=== PATIENT | female | born 1950 | race Caucasian/White ===

== ENCOUNTER → 2018-04-09 02:28 | Outpatient (CLI) | payer MEDICARE, MEDICAID, SELFPAY ==
[2018-04-09 11:03] LABS: HCT 39.5 % (36.0-46.0); HGB 12.6 g/dL (12.0-15.5); Mean Corp. HGB Concentration 31.9 g/dL (32.0-36.0); Mean Corpuscular Hemoglobin 28.9 pg (27.0-33.0); Mean Corpuscular Volume 90.6 fL (80-95); Mean Platelet Volume 8.8 fL (8.0-11.0); Platelet Count 298 x1000/uL (130-400); RBC 4.36 m/cumm (4.00-5.20); RBC Distribution Width 16.6 % (11.7-14.6); White Blood Cell Count 12.35 k/cumm (4.4-10.8)
[2018-04-09 11:33] LABS: ALT 14 U/L (12-78); AST 11 U/L (15-37); Albumin 3.7 g/dL (3.4-5.0); Alkaline Phosphatase 78 U/L (46-116); Anion Gap 11.3 mmol/L (3-11); BUN 19 mg/dL (7-18); Bilirubin, Total 0.3 mg/dL (0.2-1.0); CO2 29.7 mmol/L (21.0-32.0); CREATININE 1.18 mg/dL (0.55-1.02); Calcium 8.9 mg/dL (8.5-10.1); Chloride 96 mmol/L (98-107); Estimated GFR 45.97 (mL/min/1.73m2); Ferritin 36 ng/mL (8-388); Glucose 146 mg/dL (70-100); Magnesium 1.9 mg/dL (1.8-2.4); Potassium 4.2 mmol/L (3.5-5.1); Sodium 137 mmol/L (136-145); Total Protein 7.5 g/dL (6.4-8.2); Vitamin B12 881 pg/mL (193-986)
[2018-04-09 11:37] LABS: Hemoglobin A1C 7.1 % (4.5-6.2)
[2018-04-09 11:41] LABS: Uric Acid 4.7 mg/dL (2.6-6.0)
[2018-04-10 11:04] LABS: Hepatitis C Ab w Rflx HCV PCR Negative (NEGAT)
== END ==
PROVIDERS: PCP Family Medicine; Visit Provider Family Medicine
DX: D45 Polycythemia vera (principal); E11.9 Type 2 diabetes mellitus without complications; K76.0 Fatty (change of) liver, not elsewhere classified; M10.9 Gout, unspecified; N19 Unspecified kidney failure; E53.8 Deficiency of other specified B group vitamins; R79.0 Abnormal level of blood mineral; Z11.59 Encounter for screening for other viral diseases
CPT/HCPCS: 36415; 80053; 85027; 86803; 82607; 82728; 83036; 83735; 84550

== ENCOUNTER 2018-05-20 22:12 | Emergency (ER) | payer MEDICARE, MEDICAID, SELFPAY ==
--- NOTE | 2018-05-20 00:40 | DI.RAD_ITS ---
SYMPTOM/DIAGNOSIS: EFFUSION, PAIN, S/P TKA LEFT KNEE: Two views. Comparison is made with 06/08/17. There are again seen post surgical changes of a left total knee replacement. No new lucencies are seen in or about the orthopedic hardware to suggest acute loosening or infection. Deformity of the distal femur appears unchanged. There is a single orthopedic screw seen in the medial femoral condyle and a single orthopedic screw is seen in the proximal tibia. No acute fracture or dislocation is seen. The soft tissues are unremarkable. IMPRESSION: No acute abnormality. Stable post operative changes of a left total knee replacement.
[2018-05-20 22:12] VITALS: BP 149/100; PULSE 109; RESP 26; TEMP 36.6; O2SAT 94
--- NOTE | 2018-05-20 22:57 | W.ED.GENAD ---
Discharge Plan Disposition Patient Disposition: STILL A PATIENT Discharge Details Chief Complaint: Orthopedic Primary Care Provider: Joan Linares ED Provider: Tierra Soares Home Meds and New Rx's Prescriptions: No Action nebulizer and compressor [NasoNeb Nasal Nebulizer] 1 EACH device 1 ea Miscellaneous DIRECTED Qty: 1 RF: 0 albuterol sulfate [ProAir HFA] 8.5 GM HFA aerosol inhaler 2 puff Inhalation Q6H PRN Qty: 1 RF: 3 hydrochlorothiazide 50 MG tablet 0.5 tab PO DAILY Qty: 45 RF: 4 pravastatin 10 MG tablet 10 mg PO DAILY Qty: 90 RF: 4 allopurinol [Zyloprim] 300 MG tablet 1 tab PO noon Qty: 90 RF: 4 levothyroxine 200 MCG tablet 200 mcg PO DAILY Qty: 90 RF: 12 calcitriol 0.25 MCG capsule 1 tab PO DAILY Qty: 90 RF: 4 ARSEN MAG ZINC + D3 TABLET 1 EACH Tablet 1 ea PO DAILY Qty: 100 RF: 12 blood sugar diagnostic [Blood Glucose Test] 1 EACH strip 1 ea Miscellaneous 1-2 times daily Qty: 120 RF: 4 lancets 1 EACH misc 1 ea Miscellaneous DAILY Qty: 100 RF: 4 fluticasone-salmeterol [Advair Diskus] 1 EACH blister with device 1 puff Inhalation BID Qty: 3 RF: 4 umeclidinium [Incruse Ellipta] 62.5 MCG blister with device 1 puff Inhalation DAILY Qty: 90 RF: 12 glipizide 5 MG tablet extended release 24hr 5 mg PO DAILY Qty: 90 RF: 11 cyanocobalamin (vitamin B-12) [Vitamin B-12] 1,000 MCG tablet 1,000 mcg PO DAILY Qty: 90 RF: 11 magnesium oxide 500 MG capsule 2 cap PO DAILY Qty: 180 RF: 12 metoprolol tartrate 100 MG tablet 100 mg PO BID Qty: 180 RF: 12 meloxicam [Mobic] 15 MG tablet 1 tab PO DAILY Qty: 90 RF: 4 lisinopril 10 MG tablet 10 mg PO DAILY Qty: 90 RF: 12 aspirin 81 MG tablet,chewable 1 tab PO DAILY Qty: 90 RF: 12 Varicella-Zoster Ge/As01b/Pf [Shingrix Vial Kit] 50 MCG INJ 50 mcg IM ONCE Qty: 1 RF: 1 metformin [Glucophage] 1,000 MG tablet 1,000 mg PO BID Qty: 225 RF: 4 loratadine [Claritin] 10 MG tablet 10 mg PO HS Qty: 90 RF: 3 fluticasone [Flovent HFA] 12 GM HFA aerosol inhaler 2 puff Inhalation BID Qty: 1 RF: 3 acetaminophen [Mapap Extra Strength] 500 MG tablet 500 mg PO PRN PRNRF: 0 gabapentin 300 MG capsule 100 mg PO BID RF: 0 Medical Decision Making Patient presents today with chief complaint of left knee pain in the setting of TKA. On exam, patient is noted to have a well-circumscribed erythema, warmth and discomfort over the lateral aspect of the knee. Patient is noted to have an effusion. We will obtain laboratory evaluation to include CBC, CMP, ESR, CRP and uric acid. We will also obtain imaging. Primarily concerning for infectious source given the erythema, warmth and effusion. Patient is afebrile nontoxic appearing. She does appear slightly short of breath but she reports is baseline associated with COPD. No change recently. Patient requesting Tylenol for discomfort At the end of my shift, laboratory evaluation and imaging is pending. Care was transitioned to Dr. Brito. HPI General Mode of arrival: EMS. Date/Time Provider Initiated Documentation: 05/20/18 22:17. Limitations to Documentation: no limitations. Information obtained by: patient. HPI Narrative: Patient is a 67-year-old female presenting today with chief complaint of insidious onset of left knee pain. Patient reports she has had 3 total knee replacements, last was completed by Dr. Pisano in 2016. Reports she had been feeling well in regard to her knee discomfort until 2 days ago. States that she had insidious onset of left knee discomfort. States the pain is progressive and increasing. Noted erythema and warmth over the medial aspect of the left knee. Is also endorsing swelling to the left knee. She denies any fevers or chills. Reports that she has been feeling well otherwise. Patient has history of obesity, polycythemia, hypertension, COPD, TRINA, ischemic heart disease, type 2 diabetes, hypothyroidism Related Data Home Medications Medication Instructions Recorded Confirmed nebulizer and compressor [NasoNeb #1 ea 12/20/12 05/31/16 Nasal Nebulizer] acetaminophen [Tylenol Extra 500 mg PO PRN PRN 05/26/16 05/20/18 Strength] albuterol sulfate [Proair Hfa] 2 puff INHALATION Q6H PRN #1 09/24/17 05/20/18 canister allopurinol [Zyloprim] 1 tab PO noon #90 tab-cap 11/05/17 05/20/18 blood sugar diagnostic [Glucose #120 strip 11/05/17 Test Strip] calcitriol 1 tab PO DAILY #90 cap 11/05/17 05/20/18 hydrochlorothiazide 0.5 tab PO DAILY #45 tab-cap 11/05/17 05/20/18 levothyroxine 200 mcg PO DAILY #90 tab-cap 11/05/17 05/20/18 pravastatin 10 mg PO DAILY #90 tab-cap 11/05/17 05/20/18 lancets #100 ea 11/21/17 fluticasone-salmeterol [Advair 1 puff INHALATION BID #3 disk 01/15/18 05/20/18 500/50 Diskus] umeclidinium [Incruse Ellipta] 1 puff INHALATION DAILY #90 inhaler 01/15/18 05/20/18 glipizide 5 mg PO DAILY #90 tab-cap 02/22/18 05/20/18 cyanocobalamin (vitamin B-12) 1,000 mcg PO DAILY #90 tab-cap 03/12/18 05/20/18 [Vitamin B-12] magnesium oxide 2 cap PO DAILY #180 tab-cap 03/12/18 05/20/18 aspirin 1 tab PO DAILY #90 tab-cap 04/16/18 05/20/18 lisinopril 10 mg PO DAILY #90 tab-cap 04/16/18 05/20/18 loratadine [Claritin] 10 mg PO HS #90 tab-cap 04/16/18 05/20/18 meloxicam [Mobic] 1 tab PO DAILY #90 tab 04/16/18 05/20/18 metformin [Glucophage] 1,000 mg PO BID #225 tab-cap 04/16/18 05/20/18 metoprolol tartrate 100 mg PO BID #180 tab-cap 04/16/18 05/20/18 fluticasone [Flovent 220mcg] 2 puff INHALATION BID #1 inhaler 04/26/18 gabapentin 100 mg PO BID 05/20/18 05/20/18 Previous Rx's Medication Instructions Recorded albuterol sulfate [Proair Hfa] 2 puff INHALATION Q6H PRN #1 09/24/17 canister allopurinol [Zyloprim] 1 tab PO noon #90 tab-cap 11/05/17 blood sugar diagnostic [Glucose #120 strip 11/05/17 Test Strip] calcitriol 1 tab PO DAILY #90 cap 11/05/17 hydrochlorothiazide 0.5 tab PO DAILY #45 tab-cap 11/05/17 levothyroxine 200 mcg PO DAILY #90 tab-cap 11/05/17 pravastatin 10 mg PO DAILY #90 tab-cap 11/05/17 lancets #100 ea 11/21/17 fluticasone-salmeterol [Advair 1 puff INHALATION BID #3 disk 01/15/18 500/50 Diskus] umeclidinium [Incruse Ellipta] 1 puff INHALATION DAILY #90 inhaler 01/15/18 glipizide 5 mg PO DAILY #90 tab-cap 02/22/18 cyanocobalamin (vitamin B-12) 1,000 mcg PO DAILY #90 tab-cap 03/12/18 [Vitamin B-12] magnesium oxide 2 cap PO DAILY #180 tab-cap 03/12/18 aspirin 1 tab PO DAILY #90 tab-cap 04/16/18 lisinopril 10 mg PO DAILY #90 tab-cap 04/16/18 loratadine [Claritin] 10 mg PO HS #90 tab-cap 04/16/18 meloxicam [Mobic] 1 tab PO DAILY #90 tab 04/16/18 metoprolol tartrate 100 mg PO BID #180 tab-cap 04/16/18 fluticasone [Flovent 220mcg] 2 puff INHALATION BID #1 inhaler 04/26/18 Allergies Allergy/AdvReac Type Severity Reaction Status Date / Time ephedrine AdvReac Mild TACHYCARDIA Unverified 05/20/18 22:16 adhesive AdvReac Unknown Skin Rash Unverified 05/20/18 22:16 pseudoephedrine AdvReac Unknown tachycardia Unverified 05/20/18 22:16 General Stated Complaint: Orthopedic RAFAEL: 3 Review of Systems Constitutional Denies body ache(s), Denies chills, Denies fatigue, Denies fever(s) and Denies headache(s) ENT Denies headache(s) Cardiovascular Denies chest pain, Denies chest pain at rest and Reports dyspnea (Patient endorses chronic dyspnea which she associates with her COPD, no recent exacerbation in this.) Respiratory Denies cough, Denies pain on inspiration, Denies pain with cough and Reports dyspnea (Patient endorses chronic dyspnea which she associates with her COPD, no recent exacerbation in this.) Gastrointestinal Denies change in bowel habits, Denies nausea and Denies vomiting Musculoskeletal Reports as per HPI and Reports abnormal gait (Patient reports that pain is increased with ambulation, this particularly increases the pain in the posterior aspect of the knee and upper calf) Integumentary/Breasts Reports as per HPI Neurologic Reports abnormal gait (Patient reports that pain is increased with ambulation, this particularly increases the pain in the posterior aspect of the knee and upper calf) and Denies headache(s) Endocrine Denies fatigue PFSH Family History Mother Diabetes Essential hypertension Cerebrovascular accident Asthma Father Diabetes Essential hypertension Hyperlipidemia Cerebrovascular accident Brother Essential hypertension Hyperlipidemia Neoplasm Asthma Brother No problems noted. Brother Essential hypertension Heart disease Asthma Grandfather Neoplasm Cerebrovascular accident Grandfather No problems noted. Grandmother Diabetes Cerebrovascular accident Grandmother Essential hypertension Cerebrovascular accident Son No problems noted. Daughter No problems noted. Daughter No problems noted. FAMILY HISTORY Polycythemia Kidney stones DJD (degenerative joint disease) Thyroid disease Social History Smoking/Tobacco Use Status: Current every day Surgical History Arthroplasty of knee BIOPSY (~2003) CARDIAC CATH section EYE SURGERY Endometrial Biopsy Knee revision (~05/2016) Ligation of fallopian tube Replacement of total knee joint (11/25/14) Thyroidectomy Tonsillectomy para thyroidectomy (right) Exam Const General: cooperative, healthy appearing, comfortable, no acute distress and well developed Nutritional Appearance: overweight Orientation: alert and awake Resp Effort & Inspection: normal respiratory effort, able to speak in complete sentences and no respiratory distress Auscultation: clear to auscultation bilaterally Cardio Rate: regular rate Rhythm: regular rhythm Heart Sounds: S1 normal and S2 normal Skin General skin exam: erythema (Patient is a well-circumscribed area of erythema to the medial aspect of the left knee, approximately 8 cm in diameter. Area is warm and tender to palp) Neuro General: alert and awake Cognition: normal cognition Speech: speech normal Gait: gait abnormal (Patient has not ambulated since arrival) Sensory Exam: no sensory deficits noted Extrem General: abnormal to inspection (Exam the patient's left lower extremity is significant for erythema and warmth to the medial aspect of the knee as described above. Moderate effusion is palpable. Full extension. Is able to flex her proximal 110?. Incision appears to have healed well. ), normal capillary refill, no calf tenderness bilaterally and no edema Psych Appearance: grossly normal Mental Status: mental status grossly normal Speech and Movement: speech and movement normal Course Vital Signs Temperature 36.6 C 05/20/18 22:12 Pulse 109 H 05/20/18 22:12 Respiratory Rate 26 H 05/20/18 22:12 Blood Pressure 149/100 H 05/20/18 22:12 Pulse Oximetry 94 L 05/20/18 22:12 Temperature 36.6 C 05/20/18 22:12 Temperature Source Skin 05/20/18 22:12 Pulse 109 H 05/20/18 22:12 Respiratory Rate 26 H 05/20/18 22:12 Respiratory Effort 05/20/18 22:14 Blood Pressure 149/100 H 05/20/18 22:12 Pulse Oximetry 94 L 05/20/18 22:12 Oxygen Delivery Method Room Air 05/20/18 22:12 Oxygen Flow Rate 0 05/20/18 22:12 Pain Level 8 05/20/18 22:12
[2018-05-20] MEDS: Acetaminophen 500 MG TAB 1000 MG PO (23:00)
[2018-05-20 23:15] LABS: Abs Immature Grans 0.06 k/cumm (0.0-0.09); Absolute Eosinophil Count 0.05 k/cumm (0.0-0.7); Absolute Neutrophil Count 13.02 k/cumm (1.2-6.7); Basophils % 0.4; Eosinophils % 0.3; HGB 13.5 g/dL (12.0-15.5); Immature Grans % 0.4; Lymphocytes % 11.5; Mean Corp. HGB Concentration 32.1 g/dL (32.0-36.0); Mean Corpuscular Hemoglobin 28.5 pg (27.0-33.0); Mean Corpuscular Volume 88.8 fL (80-95); Mean Platelet Volume 8.7 fL (8.0-11.0); Monocytes % 8.5; Neutrophils % 78.9; Platelet Count 311 x1000/uL (130-400); RBC 4.73 m/cumm (4.00-5.20); RBC Distribution Width 17.1 % (11.7-14.6)
[2018-05-20 23:26] LABS: Absolute Basophil Count 0.07 k/cumm (0.0-0.2)
[2018-05-20 23:33] LABS: ALT 22 U/L (12-78); AST 17 U/L (15-37); Albumin 3.6 g/dL (3.4-5.0); Alkaline Phosphatase 79 U/L (46-116); Anion Gap 12.6 mmol/L (3-11); BUN 26 mg/dL (7-18); Bilirubin, Total 0.3 mg/dL (0.2-1.0); C-Reactive Protein 2.25 mg/dL (0.0-0.3); CO2 29.4 mmol/L (21.0-32.0); CREATININE 1.46 mg/dL (0.55-1.02); Calcium 8.7 mg/dL (8.5-10.1); Chloride 96 mmol/L (98-107); Estimated GFR 35.96 (mL/min/1.73m2); Glucose 154 mg/dL (70-100); Potassium 4.3 mmol/L (3.5-5.1); Sodium 138 mmol/L (136-145); Total Protein 7.8 g/dL (6.4-8.2); Uric Acid 4.1 mg/dL (2.6-6.0)
[2018-05-21 00:40] VITALS: O2SAT 94
--- NOTE | 2018-05-21 00:44 | DI.VRAD_ITS ---
EXAM: XR Left Knee, 1 or 2 views CLINICAL HISTORY: 67 years old, female; Pain; Knee; Left; Prior surgery; Surgery date: 6+ months; Surgery type: Tka 2015; Patient HX: Pain for 3 days, no fall or trauma TECHNIQUE: Frontal and/or lateral views of the left knee. COMPARISON: CR LEFT KNEE 3 VIEW COMPLETE 06/08/2017 9:34 AM FINDINGS: Bones/joints: Unremarkable. No acute fracture. No dislocation. Soft tissues: Unremarkable. Other findings: Postoperative and chronic changes. No evidence of hardware failure or loosening. IMPRESSION: Postoperative and chronic changes. Dictated and Authenticated by: Petr Soto MD. Ordering:CHUNG ZAMUDIO MD
[2018-05-21 00:46] VITALS: BP 155/84; PULSE 102; O2SAT 94
[2018-05-21 00:50] VITALS: O2SAT 99
[2018-05-21] MEDS: Albuterol/Ipratropium 3 ML UPD VIAL UPD (00:53)
[2018-05-21 01:00] VITALS: O2SAT 98
[2018-05-21 01:01] VITALS: BP 142/96; PULSE 98; O2SAT 97
[2018-05-21 01:02] LABS: ESR 42 MM/HR (0-30)
[2018-05-21 02:02] VITALS: BP 132/74; PULSE 100; RESP 24; TEMP 36.2; O2SAT 96
== END 2018-05-21 02:13 | disposition home or self-care (01) ==
LOC: ER 05-21 02:13
PROVIDERS: Physician Assistant; Emergency Provider Emergency Medicine; PCP Family Medicine
DX: M25.562 Pain in left knee (principal); J44.9 Chronic obstructive pulmonary disease, unspecified; F17.210 Nicotine dependence, cigarettes, uncomplicated; Z96.652 Presence of left artificial knee joint; E11.9 Type 2 diabetes mellitus without complications; Z79.84 Long term (current) use of oral hypoglycemic drugs; I10 Essential (primary) hypertension
CPT/HCPCS: 36415; 80053; 85652; 94640; 99284; 73560; 84550; 85025; 86140; J7620

== ENCOUNTER → 2018-05-21 14:00 | Outpatient (BNVA) | payer MEDICARE, MEDICAID, SELFPAY | PROVIDERS: PCP Family Medicine; Referring Provider Family Medicine; Visit Provider Orthopaedic Surgery | DX: M25.462 Effusion, left knee (principal); M25.562 Pain in left knee; Z96.652 Presence of left artificial knee joint | CPT/HCPCS: 20610; 99212; 99213 ==

== ENCOUNTER 2018-05-21 15:21 | Outpatient (REF) | payer MEDICARE, MEDICAID, SELFPAY ==
[2018-05-21 16:42] LABS: Source SYNOVIAL
[2018-05-21 16:43] LABS: Clarity PURULENT; Nucleated Cells 45250 /MM3 (0-0)
[2018-05-21 17:06] LABS: Mononuclear Cells 4 % (0-0); Polynuclear Cells 96 % (0-0)
== END 2018-05-21 15:41 ==
LOC: LBN 15:21
PROVIDERS: PCP Family Medicine; Visit Provider Orthopaedic Surgery
DX: M25.562 Pain in left knee (principal); Z96.652 Presence of left artificial knee joint
CPT/HCPCS: 87077; 87070; 87186; 87205; 89051; 89060

== ENCOUNTER 2018-05-24 07:36 | Inpatient (IN) | payer MEDICARE, MEDICAID, SELFPAY ==
[2018-05-24] VITALS (12 sets, daily range): BP systolic 109–143; BP diastolic 57–80; PULSE 73–101; RESP 17–22; TEMP 36.2–37; O2SAT 93–99
[2018-05-24] MEDS: Lactated Ringers 1,000 ML 80 ML IV (07:20)
[2018-05-24] MEDS: VANCOMYCIN 1,000 MG in Normal Saline 250 ML 166.6666 MG IVPB (09:18)
--- NOTE | 2018-05-24 09:50 | SYNOVIUM_PTH ---
PATIENT: ROBERT SEVERINO LOC: U#:[id number] AGE/SX: 67/F ROOM: 215 RE05/24/[address]: Gage Pisano MD : [id number] BED: A DIS: 05/30/2018 SPEC #: [id number] RECD: 05/24/18 12:52 STATUS: DOM REAna Maria #: [id number] JAXSON: 05/24/18 09:[address]: Gage Pisano DEPT: Surgical Specimen RECD BY: Saray Savage ENTERED: 05/24/18 12:52 SP TYPE: SYNOVIUM OTHR DR: Joan Linares MD, DC Tissues: 1 - SYNOVIUM/IAL Procedures: GROSS AND MICRO LEVEL 4 Comments: [id number]
[2018-05-24] MEDS: Normal Saline 50 ML 9 ML (11:23)
[2018-05-24] MEDS: Ketorolac 30 MG/ML VIAL (11:23)
[2018-05-24] MEDS: Bupivacaine 0.25% Pres-Free 30 ML VIAL 60 ML (11:23)
[2018-05-24] MEDS: Bupivacaine LIPOSOME/PF 133 MG/10 ML VIAL IJ (11:23)
[2018-05-24] MEDS: POTASSIUM CHLORIDE/D5-0.9%NACL 1,000 ML 125 MEQ IV (13:16)
--- NOTE | 2018-05-24 13:34 | ROE_ITS ---
REPORT OF OPERATIVE PROCEDURE DATE OF PROCEDURE May 24, 2018 PREOPERATIVE DIAGNOSIS Infected left revision total knee arthroplasty. POSTOPERATIVE DIAGNOSIS Infected left revision total knee arthroplasty. PROCEDURE Irrigation, debridement and polyethylene exchange with placement of vancomycin impregnated calcium py rophosphate beads. SURGEON Gage Pisano M.D. ELECTRIC PLATER Efrain Sanchez ANESTHESIA Adductor canal block, followed by tepid spinal anesthesia, followed by general endotracheal anesthesi a by Omid Mason CRNA. PREP ChloraPrep. INDICATIONS This patient has a six-day history of pain and swelling in her let knee. She was seen by me in the of [facility] and underwent an aspiration because of a painful left revision total knee arthroplasty and some erythema over the medial aspect the knee. The patient is two-year status post revision total knee art hroplasty, which was done two years ago to provide stability to the knee as she had ruptured her medi al collateral ligament, and posterior cruciate ligaments after her indexed operation was done several years ago. She had been doing well until five days ago, when she spontaneously developed pain in her left knee. She has been having some problems with sebaceous cysts that have been draining from both armpits and this may have been contributory to her current symptoms. Aspiration in the office reveale d purulent material containing approximately 42,000 white blood cells, the majority of them were poly s, this was sent for culture, as well as alpha defensin at [facility] in [place]. This fluid analysis in [place] was positive for infection and culture showed two species of Staph, one apparen tly being Staph epidermidis, suspected to be Methicillin-resistant and the second species was unknown . I explained to the patient that she had an infection in her revision total knee arthroplasty. I thi nk a two-stage exchange would be impossible to do with all of her comorbidities, including severe LEAD BLENDER D, morbid obesity, diabetes, blindness in her left eye and limited mobility. I felt the best option b ased on recent data from the [facility] would be to perform open irrigation and debridement, polyeth ylene exchange and use of vancomycin impregnated calcium pyrophosphate beads, along with vancomycin p owder intraarticularly and IV vancomycin. She would need to be on IV antibiotics for a minimum of six weeks and then maintained on overall antibiotics for at least six months depending on the sensitivit ies of the organisms grown. I discussed the risks and benefits and she understood and wished to proce ed. DESCRIPTION OF PROCEDURE The patient was seen in the Day Surgery area. Her left leg was marked. She underwent adductor canal b lockade. She underwent attempted spinal anesthesia and although the patient did have spinal fluid at the hub of the spinal needle, she had an incomplete spinal. Therefore, she was placed in a supine pos ition and underwent placement of an LMA, but this did not show an adequate end tidal volume and there fore, she was converted to General endotracheal anesthesia. She was stable throughout the case. She w as given 1 gram vancomycin, with the current plan to have her on 1 gram q. 18 hours to maintain an ap propriate peak in trough level. This was based on the formula provided to me for this patient by the pharmacist. A Cadena catheter was inserted under sterile technique. The left leg was prepped with ChloraPrep. A p neumatic tourniquet applied to the proximal thigh. After prepping and draping, timeout was instituted verifying the planned procedure. The tourniquet was inflated to 380 mmHg. The previous incision was utilized. There was no draining sinus or evidence of any subcutaneous abscess coming from the knee lamine int. The incision was carried down through the midline creating thick medial and lateral capsular fla ps. Care was taken to minimize any undermining of the soft tissues. The extensor mechanism was identi fied and care was taken to stay away from the cadaveric medial collateral ligament graft that had bee n placed two years earlier. After performing the arthrotomy, a moderate amount of purulent material w as encountered, it was grossly yellow and thick, it did not have any odor to it. It was evacuated fro m the knee. Retractors were then placed and rongeurs were used to debride soft tissues and contaminat ed debris from the knee. This was done in a careful manner working both on the medial and lateral gut ters and along the suprapatellar pouch. The components all look to be in good position. They were sta ble. They had no motion whatsoever. I irrigated the knee provisionally with approximately 2000 cc of Betadine and saline solution with a mixture of approximately 100 cc of Betadine per 3000 cc liter irr igation bag. At this point, then I removed the polyethylene insert with mild to moderate difficulty w ithout damaging the collateral or capsular structures. There was no wear on the polyethylene insert. The rotating platform portion and the tibial tray was carefully irrigated out and the posterior condy les were cleansed using mechanical debridement. The patella polyethylene was also debrided mechanical ly with gauze sponges. I then completed the irrigation with a total of 6000 cc of Betadine and saline solution. This was followed by 3000 cc of sterile saline. New gloves and drapes were applied. [place], I planned on replacing the 15-mm polyethylene insert as that was the size that I had removed. Bogdan hinton, I felt that the patient would benefit from a slightly thicker polyethylene insert to provide b lucas midflexion stability to the knee as she had some residual midflexion instability prior to devel oping this infection. With moderate difficulty, the 17.5 mm size 3 rotating platform polyethylene in sert was placed and the knee showed excellent stability, especially in extension, but even in midflex ion. Calcium pyrophosphate beads were then created in a mold with vancomycin powder added to the mix ture. This was allowed to cure and then placed along the medial and lateral gutters and in the suprap atellar pouch. 1 gram of vancomycin was placed directly in the joint in addition. The arthrotomy was then closed with sutures of #1-Vicryl in a layered fashion. Two layers of capsule were closed above t he patella and this was also done below the patella. The extensor mechanism repair was felt to be exc ellent. At this point, the tourniquet was deflated. Hemostasis was under control. Tranexamic acid 3 grams and 100 cc of saline was placed intraarticularly to maintain hemostasis. Subcutaneous tissues w ere closed with #2-0 Vicryl. The skin was closed with 3-0 Ethilon alternating simple sutures, along w ith near-far, far-near retention sutures. The patient has excellent return of skin flow to the skin a nd subcutaneous tissues. Dorsalis pedis pulse was intact. The wound was dressed with Xeroform gauze, 4x4s, A 6-inch conforming gauze bandage, two 6-inch medardo wraps, a Cryo Cuff and a commercial knee immo bilizer. She was taken to the Recovery Room in satisfactory condition tolerating the procedure well. The plan will be continue her on her vancomycin until final sensitivities are available. Estimated blood loss was 175 cc. Postop radiographs showed satisfactory placement of components and overall excellent mechanical alignment. There will be issues related to need for transportation two a nd from home to receive IV vancomycin. I also had the lab run sensitivities for daptomycin sensitivit ies so that a more convenient outpatient dosing schedule could be achieved.
--- NOTE | 2018-05-24 13:45 | NUR.NOTE ---
Nursing Note: 1248: pt arrives from pacu to room 215 via stretcher. pt is alert/oriented x 3. pt has immobilizer and cryo cuff to left knee. knee is elevated on 2 pillows. pt denies pain at this time. pt has patent IV in LH/LW region. pt moved from stretcher to bed via hover mat. pt able to assist in positioning. pt has skin breakdown/redness under bilateral breasts and in groin region. fs in pacu was 133. hr regular, ls clear diminished, pt placed on 1L o2, pt has home bipap/cpap, huffman draining clear yellow urine. pt oriented to call [employer] system, tv remote, continue to monitor.
--- NOTE | 2018-05-24 14:50 | HOME_ITS ---
Home Ventilator Equipment Home care company [facility] Reason: Obstructive Sleep Apnea Make: Respironics Model: Dreamstation Mask type: Nasal mask Mask size: Small Mode: BiPAP Settings: 16/8 PS 4.0 Oxygen bleed in (lpm): 0 Condition: Good Date last checked: 05/24/18 Year of last sleep study: 2017 Compliance Daily Comments:
--- NOTE | 2018-05-24 16:24 | W.MEDCONSULT ---
Date of service: 05/24/18 Time of Service: 16:24 Assessment and Plan (1) Hypertension: Current visit: No Status: Chronic Continue current regimen of HCTZ and AUGUSTO-I, as well as BB. However, review of labs with evidence of worsening creatinine, with a baseline of 1 - 1.2, last checked 1.46 4 days ago. Recommend monitoring repeat blood work in the morning, with appropriate med adjustment as needed pending results. (2) TRINA (obstructive sleep apnea): Current visit: No Status: Chronic Continue home BIPAP therapy. (3) Diabetes mellitus, type II: Current visit: No Status: Chronic Continue Glipizide but hold Metformin. Sliding scale coverage started on sensitive scale due to blood sugars in the 200 range. Maintain on ADA diet. (4) Hypothyroidism: Current visit: No Status: Chronic Continue replacement therapy. (5) COPD (chronic obstructive pulmonary disease): Current visit: Yes Status: Chronic Continue home inhaler therapy with IGC and LAMA. Duonebs added on a prn basis. Currently appears quiescent. (6) DVT prophylaxis: Current visit: Yes Status: Acute Continue SC Lovenox. (7) Hypoparathyroidism: Current visit: Yes Status: Acute Reported history of Thyroidectomy and Parathyroidectomy on the basis of a Multi-nodular Goiter with compressive symptoms, with resultant Hypocalcemia following. Currently on Calcitriol. Corrected Calcium appears normal. Monitor. History of Present Illness Chief Complaint: Infected Knee Narrative: Very pleasant 67 year old woman with a past medical history significant for NIDDM, COPD and tobacco abuse, TRINA, HTN, and dyslipidemia, presents to [facility] for an elective knee irrigation and debridement secondary to an infected left knee prosthesis. Mrs. Leiva has an infected left knee revision with a history of a left sided TKA. She is s/p Irrigation, Debridement, and Polyethylene Exchange with placement of Vancomycin Beads on 05/[address] Pisano. Medicine was consulted for assistance in management of medical comorbidities. Review of Systems Review of Systems All systems reviewed & are unremarkable except as noted in HPI and below PFSH Family History Mother Diabetes Essential hypertension Cerebrovascular accident Asthma Father Diabetes Essential hypertension Hyperlipidemia Cerebrovascular accident Brother Essential hypertension Hyperlipidemia Neoplasm Asthma Brother No problems noted. Brother Essential hypertension Heart disease Asthma Grandfather Neoplasm Cerebrovascular accident Grandfather No problems noted. Grandmother Diabetes Cerebrovascular accident Grandmother Essential hypertension Cerebrovascular accident Son No problems noted. Daughter No problems noted. Daughter No problems noted. FAMILY HISTORY Polycythemia Kidney stones DJD (degenerative joint disease) Thyroid disease Social History Smoking/Tobacco Use Status: Current every day Surgical History Arthroplasty of knee BIOPSY (~2003) CARDIAC CATH section EYE SURGERY Endometrial Biopsy Knee revision (~05/2016) Ligation of fallopian tube Replacement of total knee joint (11/25/14) Thyroidectomy Tonsillectomy para thyroidectomy (right) Exam Narrative Exam Narrative: General: Patient appears comfortable, AAOX3, NAD Neck: Supple CV: Regular, nontachycardic, S1S2, No rubs, murmurs, or gallops. Pulmonary: Clear to auscultation bilaterally, no crackles, wheezing, or rhonchi. Overall decreased breath sounds Abdomen: + Bowel Sounds, soft, nontender, nondistended Vascular: No lower extremity edema Neurologic: CN II-XII grossly intact. No focal deficits. Psych: Normal mood and affect.
[2018-05-24] MEDS: Acetaminophen 325 MG TAB 650 MG PO (16:48)
[2018-05-24] MEDS: Metoprolol 50 MG TAB 100 MG PO (19:26)
[2018-05-24] MEDS: Lactobacillus Acidophilus CAP 1 CAP PO (19:26)
[2018-05-24] MEDS: Gabapentin 100 MG CAP PO (19:26)
[2018-05-24] MEDS: Magnesium Oxide 400 MG TAB PO (19:27)
[2018-05-24] MEDS: Pravastatin 20 MG TAB 10 MG PO (19:27)
[2018-05-24] MEDS: POTASSIUM CHLORIDE/0.9% NACL 1,000 ML 125 MEQ IV (19:59)
[2018-05-24] MEDS: oxyCODONE 5 MG TAB PO (20:24)
[2018-05-24] MEDS: glipiZIDE C.R. 5 MG TABCR PO (21:33)
[2018-05-24] MEDS: Umeclidinium 7 CAP INHALER 1 CAP IH (21:34)
[2018-05-24] MEDS: Loratidine 10 MG TAB PO (21:40)
[2018-05-25] VITALS (8 sets, daily range): BP systolic 109–133; BP diastolic 67–83; PULSE 76–90; RESP 16–19; TEMP 36.1–37.6; O2SAT 96–97
[2018-05-25] MEDS: POTASSIUM CHLORIDE/0.9% NACL 1,000 ML 125 MEQ IV ×4 (03:44→23:04)
[2018-05-25] MEDS: Acetaminophen 325 MG TAB 650 MG PO ×2 (03:46→15:52)
[2018-05-25] MEDS: VANCOMYCIN 1,000 MG in Normal Saline 250 ML 166.667 MG IVPB ×2 (03:56→18:04)
[2018-05-25] MEDS: Levothyroxine 100 MCG TAB PO (05:51)
--- NOTE | 2018-05-25 07:13 | PDOC.CMIN ---
- If Service Date Differs Date of service: 05/25/18 Time of Service: 07:13 Care Management Initial Assess REASON FOR HOSPITALIZATION:: Infection Left Total Knee Revision. PAST MEDICAL HISTORY/PAST SURGICAL HISTORY:: Hypoparthyroidism, COPD, morbid obesity, polycythemia, hypertension, RAD, TRINA, ischemic heart disease, diabetes, hypothyroidism, degenerative arthritis of left knee. Surgical hx: Biopsy; bone marrow, , cardiac cath,ligation of fallopian tube, parathroidectomy, total knee joint replacement, thyroidectomy, tonsillectomy, eye surgery, endometrial biopsy. PREVIOUS FUNCTIONAL STATUS/SOCIAL/FAMILY SUPPORTS:: Helene Faye) resides alone at the [facility] apartments in [place]. She reports that there are two flights of stairs into her home and that since her eye injury in May of 2017 she does not navigate the stairs independently. Marisel reports that she utilizes [facility] for appointments and errands and that they assist her on the stairs when needed. She does not use her walker in her apartment but reports that she does use it to ambulate when out in the community. Marisel reports that her brother, Noe, lives locally and is supportive, though he is very busy with haying at this time. CURRENT FUNCTIONAL STATUS:: Marisel is lying in bed when CM visits this morning. She is engaged in conversation and talkative, and familiar to this CM due to previous admissions. She reports that her pain is minimal and has been taking APAP and oxycodone PRN. She is frustrated by this recent set back in her health however understands that she will be needing longer term IV antibiotics. Per MD, Marisel is due for a PICC consult and may continue with IV antibiotics outpatient with nursing. ADVANCE DIRECTIVES:: On file at [facility]. Has patient been provided with information about the portal?: Yes Did the patient sign up for the portal?: No CODE STATUS:: Full Code INSURANCE COVERAGE / FINANCIAL ISSUES:: Medicaid, Medicare. CURRENT HOME/COMMUNITY SERVICES/EQUIPMENT:: [facility] (Guillermina Mendoza, telehealth case manager), MOW, homemaker services 2 hours/week. PRIMARY CARE PHYSICIAN:: Joan Linares. POTENTIAL DISCHARGE NEEDS:: Follow up appointment with MD and increased home health services. PATIENT/FAMILY EDUCATION NEEDS:: Discharge education, any limitations and follow up plan of care. Ask Me Three discussion. ANTICIPATED BARRIERS TO DISCHARGE:: No anticipated barriers to discharge. TRANSPORTATION:: Marisel will transport via [facility]. PLAN:: Marisel will discharge home when medically ready per MD. Anticipate patient will discharge with home health nursing services, PT/OT and follow up with MD. CM will continue to offer support to patient and care team regarding discharge planning and disposition.
--- NOTE | 2018-05-25 07:20 | INITIAL_ITS ---
- If Service Date Differs Date of service: 05/25/18 Time of Service: 07:13 Care Management Initial Assess REASON FOR HOSPITALIZATION:: Infection Left Total Knee Revision. PAST MEDICAL HISTORY/PAST SURGICAL HISTORY:: Hypoparthyroidism, COPD, morbid obesity, polycythemia, hypertension, RAD, TRINA, ischemic heart disease, diabetes , hypothyroidism, degenerative arthritis of left knee. Surgical hx: Biopsy; bone marrow, , cardiac cath,ligation of fallopian tube, parathroidectomy, total knee joint replacement, thyroidectomy, tonsillectomy, eye surgery, endometrial biopsy. PREVIOUS FUNCTIONAL STATUS/SOCIAL/FAMILY SUPPORTS:: Helene Faye) resides alone at the [facility] apartments in [place]. She reports that there are two flights of stairs into her home and that since her eye injury in May of 2017 she does not navigate the stairs independently. Marisel reports that she utilizes [facility] for appointments and errands and that they assist her on the stairs when needed. She does not use her walker in her apartment but reports that she does use it to ambulate when out in the community. Marisel reports that her brother, Noe, lives locally and is supportive, though he is very busy with haying at this time. CURRENT FUNCTIONAL STATUS:: Marisel is lying in bed when CM visits this morning. She is engaged in conversation and talkative, and familiar to this CM due to previous admissions. She reports that her pain is minimal and has been taking APAP and oxycodone PRN. She is frustrated by this recent set back in her health however understands that she will be needing longer term IV antibiotics. Per MD , Marisel is due for a PICC consult and may continue with IV antibiotics outpatient with nursing. ADVANCE DIRECTIVES:: On file at [facility]. Has patient been provided with information about the portal?: Yes Did the patient sign up for the portal?: No CODE STATUS:: Full Code INSURANCE COVERAGE / FINANCIAL ISSUES:: Medicaid, Medicare. CURRENT HOME/COMMUNITY SERVICES/EQUIPMENT:: [facility] (Guillermina Mendoza, oil field caser), MOW, homemaker services 2 hours/week. PRIMARY CARE PHYSICIAN:: Joan Linares. POTENTIAL DISCHARGE NEEDS:: Follow up appointment with MD and increased home health services. PATIENT/FAMILY EDUCATION NEEDS:: Discharge education, any limitations and follow up plan of care. Ask Me Three discussion. ANTICIPATED BARRIERS TO DISCHARGE:: No anticipated barriers to discharge. TRANSPORTATION:: Marisel will transport via [facility]. PLAN:: Marisel will discharge home when medically ready per MD. Anticipate patient will discharge with home health nursing services, PT/OT and follow up with MD. CM will continue to offer support to patient and care team regarding discharge planning and disposition.
[2018-05-25 07:36] LABS: HCT 36.5 % (36.0-46.0); HGB 11.4 g/dL (12.0-15.5); Mean Corp. HGB Concentration 31.2 g/dL (32.0-36.0); Mean Corpuscular Hemoglobin 28.2 pg (27.0-33.0); Mean Corpuscular Volume 90.3 fL (80-95); Mean Platelet Volume 8.3 fL (8.0-11.0); Platelet Count 272 x1000/uL (130-400); RBC 4.04 m/cumm (4.00-5.20); RBC Distribution Width 16.9 % (11.7-14.6)
[2018-05-25 07:47] LABS: Anion Gap 8.7 mmol/L (3-11); BUN 27 mg/dL (7-18); CO2 28.3 mmol/L (21.0-32.0); CREATININE 1.15 mg/dL (0.55-1.02); Calcium 8.6 mg/dL (8.5-10.1); Chloride 98 mmol/L (98-107); Estimated GFR 47.36 (mL/min/1.73m2); Glucose 150 mg/dL (70-100); Potassium 4.7 mmol/L (3.5-5.1); Sodium 135 mmol/L (136-145)
--- NOTE | 2018-05-25 08:23 | W.PM.PROGNOT ---
Assessment and Plan (1) Infected prosthetic knee joint: Current visit: Yes Status: Acute Infected left total knee revision arthroplasty satisfactory postoperative course staph epidermidis is 1 of the infecting organisms the other staph species is unknown sensitivities to follow will continue on vancomycin every 18 hours with a trough level to be drawn later today as by pharmacy medical management of COPD as per hospitalist as needed. Exam Const Other: Doing very well. Sitting up in chair eating breakfast. No chest pain pressure or shortness of breath. Pain is currently manageable with oxycodone and Tylenol. No nausea or vomiting. Extrem Other: No neurovascular deficits noted in the left foot Objective Objective Clinical Data: Abnormal lab results 05/25/18 05/25/18 Range/Units 07:23 07:23 WBC 12.80 H (4.4-10.8) k/cumm Hgb 11.4 L (12.0-15.5) g/dL MCHC 31.2 L (32.0-36.0) g/dL RDW 16.9 H (11.7-14.6) % Sodium 135 L (136-145) mmol/L BUN 27 H (7-18) mg/dL Creatinine 1.15 H (0.55-1.02) mg/dL Glucose 150 H (70-100) mg/dL Vital Signs Temperature 97.0 F L 05/25/18 04:09 Temperature Source Tympanic 05/25/18 04:09 Pulse 83 05/25/18 04:09 Pulse Rhythm Regular 05/25/18 01:05 Respiratory Rate 16 05/25/18 04:09 Respiratory Effort 05/25/18 01:05 Respiratory Depth Normal 05/25/18 01:05 Respiratory Pattern Normal 05/25/18 01:05 Blood Pressure 118/67 05/25/18 04:09 Pulse Oximetry 96 05/25/18 04:09 Respiratory End-tidal CO2 36 05/24/18 12:33 Oxygen Delivery Method Room Air 05/25/18 04:09 Oxygen Flow Rate 0 05/25/18 04:09 Pain Level 0 05/25/18 07:50 Comment 05/24/18 13:10 Intake & Output 05/24/18 05/24/18 05/25/18 11:59 23:59 11:59 Intake Total 800 / 800 1490.000 / 1421.682 1126.75 / 1968.75 Output Total 226 / 226 800 / 800 500 / 500 Balance 574 / 574 690.000 / 286.913 0619.75 / 1468.75 Weight 223 lb 5.252 oz Intake: IV 800 / 800 1250.000 / 4639.096 3287.75 / 1968.75 Oral 240 / 240 Output: Urine 150 / 150 800 / 800 500 / 500 Estimated Blood Loss 76 / 76 Other: Urine Color Yellow Yellow Straw Urine Appearance Clear Clear Clear Emesis Description None None Laboratory Results WBC 12.80 k/cumm (4.4-10.8) H 05/25/18 07:23 RBC 4.04 m/cumm (4.00-5.20) 05/25/18 07:23 Hgb 11.4 g/dL (12.0-15.5) L 05/25/18 07:23 Hct 36.5 % (36.0-46.0) 05/25/18 07:23 MCV 90.3 fL (80-95) 05/25/18 07:23 MCH 28.2 pg (27.0-33.0) 05/25/18 07:23 MCHC 31.2 g/dL (32.0-36.0) L 05/25/18 07:23 RDW 16.9 % (11.7-14.6) H 05/25/18 07:23 Plt Count 272 x1000/uL (130-400) 05/25/18 07:23 MPV 8.3 fL (8.0-11.0) 05/25/18 07:23 Sodium 135 mmol/L (136-145) L 05/25/18 07:23 Potassium 4.7 mmol/L (3.5-5.1) 05/25/18 07:23 Chloride 98 mmol/L (98-107) 05/25/18 07:23 Carbon Dioxide 28.3 mmol/L (21.0-32.0) 05/25/18 07:23 Anion Gap 8.7 mmol/L (3-11) 05/25/18 07:23 BUN 27 mg/dL (7-18) H 05/25/18 07:23 Creatinine 1.15 mg/dL (0.55-1.02) H 05/25/18 07:23 Estimated GFR/1.73 m2 47.36 (mL/min/1.73m2) 05/25/18 07:23 Glucose 150 mg/dL (70-100) H 05/25/18 07:23 Calcium 8.6 mg/dL (8.5-10.1) 05/25/18 07:23 Progress Note: Quality VTE Deep Vein Thrombosis/Pulmonary Embolism Present on Admission: No
--- NOTE | 2018-05-25 08:27 | PGE_ITS ---
Assessment and Plan (1) Infected prosthetic knee joint: Current visit: Yes Status: Acute Infected left total knee revision arthroplasty satisfactory postoperative course staph epidermidis is 1 of the infecting organisms the other staph species is unknown sensitivities to follow will continue on vancomycin every 18 hours with a trough level to be drawn later today as by pharmacy medical management of COPD as per hospitalist as needed. Exam Const Other: Doing very well. Sitting up in chair eating breakfast. No chest pain pressure or shortness of breath. Pain is currently manageable with oxycodone and Tylenol. No nausea or vomiting. Extrem Other: No neurovascular deficits noted in the left foot Objective Objective Clinical Data: Abnormal lab results 05/25/18 05/25/18 Range/Units 07:23 07:23 WBC 12.80 H (4.4-10.8) k/cumm Hgb 11.4 L (12.0-15.5) g/dL MCHC 31.2 L (32.0-36.0) g/dL RDW 16.9 H (11.7-14.6) % Sodium 135 L (136-145) mmol/L BUN 27 H (7-18) mg/dL Creatinine 1.15 H (0.55-1.02) mg/dL Glucose 150 H (70-100) mg/dL Vital Signs Temperature 97.0 F L 05/25/18 04:09 Temperature Source Tympanic 05/25/18 04:09 Pulse 83 05/25/18 04:09 Pulse Rhythm Regular 05/25/18 01:05 Respiratory Rate 16 05/25/18 04:09 Respiratory Effort 05/25/18 01:05 Respiratory Depth Normal 05/25/18 01:05 Respiratory Pattern Normal 05/25/18 01:05 Blood Pressure 118/67 05/25/18 04:09 Pulse Oximetry 96 05/25/18 04:09 Respiratory End-tidal CO2 36 05/24/18 12:33 Oxygen Delivery Method Room Air 05/25/18 04:09 Oxygen Flow Rate 0 05/25/18 04:09 Pain Level 0 05/25/18 07:50 Comment 05/24/18 13:10 Intake & Output 05/24/18 05/24/18 05/25/18 11:59 23:59 11:59 Intake Total 800 / 800 1490.000 / 2188.730 8298.75 / 1968.75 Output Total 226 / 226 800 / 800 500 / 500 Balance 574 / 574 690.000 / 661.026 4364.75 / 1468.75 Weight 223 lb 5.252 oz Intake: IV 800 / 800 1250.000 / 7722.172 1043.75 / 1968.75 Oral 240 / 240 Output: Urine 150 / 150 800 / 800 500 / 500 Estimated Blood Loss 76 / 76 Other: Urine Color Yellow Yellow Straw Urine Appearance Clear Clear Clear Emesis Description None None Laboratory Results WBC 12.80 k/cumm (4.4-10.8) H 05/25/18 07:23 RBC 4.04 m/cumm (4.00-5.20) 05/25/18 07:23 Hgb 11.4 g/dL (12.0-15.5) L 05/25/18 07:23 Hct 36.5 % (36.0-46.0) 05/25/18 07:23 MCV 90.3 fL (80-95) 05/25/18 07:23 MCH 28.2 pg (27.0-33.0) 05/25/18 07:23 MCHC 31.2 g/dL (32.0-36.0) L 05/25/18 07:23 RDW 16.9 % (11.7-14.6) H 05/25/18 07:23 Plt Count 272 x1000/uL (130-400) 05/25/18 07:23 MPV 8.3 fL (8.0-11.0) 05/25/18 07:23 Sodium 135 mmol/L (136-145) L 05/25/18 07:23 Potassium 4.7 mmol/L (3.5-5.1) 05/25/18 07:23 Chloride 98 mmol/L (98-107) 05/25/18 07:23 Carbon Dioxide 28.3 mmol/L (21.0-32.0) 05/25/18 07:23 Anion Gap 8.7 mmol/L (3-11) 05/25/18 07:23 BUN 27 mg/dL (7-18) H 05/25/18 07:23 Creatinine 1.15 mg/dL (0.55-1.02) H 05/25/18 07:23 Estimated GFR/1.73 m2 47.36 (mL/min/1.73m2) 05/25/18 07:23 Glucose 150 mg/dL (70-100) H 05/25/18 07:23 Calcium 8.6 mg/dL (8.5-10.1) 05/25/18 07:23 Progress Note: Quality VTE Deep Vein Thrombosis/Pulmonary Embolism Present on Admission: No
[2018-05-25] MEDS: Budesonide/Formoterol 160/4.5 6 GM 60 PUFF INH IH ×2 (08:37→19:56)
[2018-05-25] MEDS: Hydrochlorothiazide 25 MG TAB PO (09:12)
[2018-05-25] MEDS: Magnesium Oxide 400 MG TAB PO ×2 (09:12→19:59)
[2018-05-25] MEDS: Enoxaparin 30 MG/0.3 ML SYR SC ×2 (09:12→19:57)
[2018-05-25] MEDS: Multivitamin w/Minerals TAB 1 TAB PO (09:13)
[2018-05-25] MEDS: Meloxicam 15 MG TAB PO (09:13)
[2018-05-25] MEDS: Insulin Aspart 300 UNITS/3 ML PEN SC ×2 (09:13→12:10)
[2018-05-25] MEDS: Gabapentin 100 MG CAP PO ×2 (09:13→19:58)
[2018-05-25] MEDS: Cyanocobalamin 500 MCG TAB 1000 MCG PO (09:13)
[2018-05-25] MEDS: Allopurinol 100 MG TAB PO (09:13)
[2018-05-25] MEDS: Lisinopril 10 MG TAB PO (09:13)
[2018-05-25] MEDS: Calcitriol 0.25 MCG CAP PO (09:13)
[2018-05-25] MEDS: Pantoprazole 40 MG TABCR PO (09:13)
[2018-05-25] MEDS: Metoprolol 50 MG TAB 100 MG PO ×2 (09:13→19:57)
[2018-05-25] MEDS: Lactobacillus Acidophilus CAP 1 CAP PO ×2 (09:13→19:58)
[2018-05-25] MEDS: Albuterol/Ipratropium 3 ML UPD VIAL UPD (11:25)
[2018-05-25] MEDS: Milk of Magnesia 30 ML CUP PO (13:49)
[2018-05-25] MEDS: oxyCODONE 5 MG TAB PO (15:52)
--- NOTE | 2018-05-25 16:51 | W.PM.PROGNOT ---
Assessment and Plan (1) Infected prosthetic knee joint: Current visit: Yes Status: Acute Per orthopedics (2) COPD (chronic obstructive pulmonary disease): Current visit: No Status: Chronic Stable continue home medications (3) DVT prophylaxis: Current visit: No Status: Acute Continue subcutaneous Lovenox (4) Hypertension: Current visit: No Status: Chronic Blood pressures have been stable continue home medications (5) TRINA (obstructive sleep apnea): Current visit: No Status: Chronic Stable continue home BiPAP therapy (6) Diabetes mellitus, type II: Current visit: No Status: Chronic Blood sugars have been maintained in the high 100s with a range from 163-202 today. Continue diabetic diet sliding scale coverage before meals and at bedtime and glipizide metformin continues to be on hold for acute on chronic renal failure , her creatinine has returned to her baseline of 1.2 but should be able to restart soon (7) Hypoparathyroidism: Current visit: No Status: Acute Stable continue home medications including calcitriol and monitor Subjective Patient reports: no new complaints and feels better Interval history since last seen: 67-year-old female patient with a past medical history significant for diabetes mellitus type 2 status post knee replacement who is admitted under orthopedic services for an infection of her prosthetic knee. Hospitalist services is following for chronic disease management,. Her blood sugars have been maintained in the 160-200 range today she receiving sliding scale coverage as needed. Exam Const General: cooperative, healthy appearing, comfortable and no acute distress Nutritional Appearance: overweight Orientation: alert, awake and oriented x3 HENMT Mouth: moist mucous membranes Neck Neck: normal visual inspection Resp Effort & Inspection: normal respiratory effort Auscultation: clear to auscultation bilaterally Cardio Rate: regular rate Rhythm: regular rhythm GI Inspection: normal to inspection Palpation: soft Auscultation: normal bowel sounds Skin Wounds: wounds noted (Surgical dressing clean dry and intact she has cold therapy to her knee and is wearing an immobilizer) Neuro General: alert, awake and oriented x3 Objective Objective Clinical Data: Abnormal lab results 05/25/18 05/25/18 Range/Units 07:23 07:23 WBC 12.80 H (4.4-10.8) k/cumm Hgb 11.4 L (12.0-15.5) g/dL MCHC 31.2 L (32.0-36.0) g/dL RDW 16.9 H (11.7-14.6) % Sodium 135 L (136-145) mmol/L BUN 27 H (7-18) mg/dL Creatinine 1.15 H (0.55-1.02) mg/dL Glucose 150 H (70-100) mg/dL Vital Signs Temperature 37.0 C 05/25/18 15:54 Temperature Source Tympanic 05/25/18 15:54 Pulse 78 05/25/18 15:54 Pulse Rhythm Regular 05/25/18 07:50 Respiratory Rate 18 05/25/18 15:54 Respiratory Effort Non-Labored 05/25/18 07:50 Respiratory Depth Normal 05/25/18 07:50 Respiratory Pattern Normal 05/25/18 07:50 Blood Pressure 122/71 05/25/18 15:54 Pulse Oximetry 97 05/25/18 15:54 Respiratory End-tidal CO2 36 05/24/18 12:33 Oxygen Delivery Method Room Air 05/25/18 15:54 Oxygen Flow Rate 0 05/25/18 15:54 Pain Level 5 05/25/18 15:52 Comment 05/24/18 13:10 Intake & Output 05/24/18 05/25/18 05/25/18 23:59 11:59 23:59 Intake Total 1490.000 / 1914.808 4218.75 / 3309.75 1129 / 1129 Output Total 800 / 800 1250 / 1250 Balance 690.000 / 467.730 9072.75 / 2059.75 1129 / 1129 Intake: IV 1250.000 / 8453.633 4568.75 / 2759.75 209 / 209 Oral 240 / 240 550 / 550 920 / 920 Output: Urine 800 / 800 1250 / 1250 Other: Urine Color Yellow Yellow Urine Appearance Clear Clear Stool Size Large Stool Characteristics Soft Liquid Brown Emesis Description None Laboratory Results WBC 12.80 k/cumm (4.4-10.8) H 05/25/18 07:23 RBC 4.04 m/cumm (4.00-5.20) 05/25/18 07:23 Hgb 11.4 g/dL (12.0-15.5) L 05/25/18 07:23 Hct 36.5 % (36.0-46.0) 05/25/18 07:23 MCV 90.3 fL (80-95) 05/25/18 07:23 MCH 28.2 pg (27.0-33.0) 05/25/18 07:23 MCHC 31.2 g/dL (32.0-36.0) L 05/25/18 07:23 RDW 16.9 % (11.7-14.6) H 05/25/18 07:23 Plt Count 272 x1000/uL (130-400) 05/25/18 07:23 MPV 8.3 fL (8.0-11.0) 05/25/18 07:23 Sodium 135 mmol/L (136-145) L 05/25/18 07:23 Potassium 4.7 mmol/L (3.5-5.1) 05/25/18 07:23 Chloride 98 mmol/L (98-107) 05/25/18 07:23 Carbon Dioxide 28.3 mmol/L (21.0-32.0) 05/25/18 07:23 Anion Gap 8.7 mmol/L (3-11) 05/25/18 07:23 BUN 27 mg/dL (7-18) H 05/25/18 07:23 Creatinine 1.15 mg/dL (0.55-1.02) H 05/25/18 07:23 Estimated GFR/1.73 m2 47.36 (mL/min/1.73m2) 05/25/18 07:23 Glucose 150 mg/dL (70-100) H 05/25/18 07:23 Calcium 8.6 mg/dL (8.5-10.1) 05/25/18 07:23 Progress Note: Quality VTE Deep Vein Thrombosis/Pulmonary Embolism Present on Admission: No
--- NOTE | 2018-05-25 17:01 | PGE_ITS ---
Assessment and Plan (1) Infected prosthetic knee joint: Current visit: Yes Status: Acute Per orthopedics (2) COPD (chronic obstructive pulmonary disease): Current visit: No Status: Chronic Stable continue home medications (3) DVT prophylaxis: Current visit: No Status: Acute Continue subcutaneous Lovenox (4) Hypertension: Current visit: No Status: Chronic Blood pressures have been stable continue home medications (5) TRINA (obstructive sleep apnea): Current visit: No Status: Chronic Stable continue home BiPAP therapy (6) Diabetes mellitus, type II: Current visit: No Status: Chronic Blood sugars have been maintained in the high 100s with a range from 163- 202 today. Continue diabetic diet sliding scale coverage before meals and at bedtime and glipizide metformin continues to be on hold for acute on chronic renal failure , her creatinine has returned to her baseline of 1.2 but should be able to restart soon (7) Hypoparathyroidism: Current visit: No Status: Acute Stable continue home medications including calcitriol and monitor Subjective Patient reports: no new complaints and feels better Interval history since last seen: 67-year-old female patient with a past medical history significant for diabetes mellitus type 2 status post knee replacement who is admitted under orthopedic services for an infection of her prosthetic knee. Hospitalist services is following for chronic disease management,. Her blood sugars have been maintained in the 160-200 range today she receiving sliding scale coverage as needed. Exam Const General: cooperative, healthy appearing, comfortable and no acute distress Nutritional Appearance: overweight Orientation: alert, awake and oriented x3 HENMT Mouth: moist mucous membranes Neck Neck: normal visual inspection Resp Effort & Inspection: normal respiratory effort Auscultation: clear to auscultation bilaterally Cardio Rate: regular rate Rhythm: regular rhythm GI Inspection: normal to inspection Palpation: soft Auscultation: normal bowel sounds Skin Wounds: wounds noted (Surgical dressing clean dry and intact she has cold therapy to her knee and is wearing an immobilizer) Neuro General: alert, awake and oriented x3 Objective Objective Clinical Data: Abnormal lab results 05/25/18 05/25/18 Range/Units 07:23 07:23 WBC 12.80 H (4.4-10.8) k/cumm Hgb 11.4 L (12.0-15.5) g/dL MCHC 31.2 L (32.0-36.0) g/dL RDW 16.9 H (11.7-14.6) % Sodium 135 L (136-145) mmol/L BUN 27 H (7-18) mg/dL Creatinine 1.15 H (0.55-1.02) mg/dL Glucose 150 H (70-100) mg/dL Vital Signs Temperature 37.0 C 05/25/18 15:54 Temperature Source Tympanic 05/25/18 15:54 Pulse 78 05/25/18 15:54 Pulse Rhythm Regular 05/25/18 07:50 Respiratory Rate 18 05/25/18 15:54 Respiratory Effort Non-Labored 05/25/18 07:50 Respiratory Depth Normal 05/25/18 07:50 Respiratory Pattern Normal 05/25/18 07:50 Blood Pressure 122/71 05/25/18 15:54 Pulse Oximetry 97 05/25/18 15:54 Respiratory End-tidal CO2 36 05/24/18 12:33 Oxygen Delivery Method Room Air 05/25/18 15:54 Oxygen Flow Rate 0 05/25/18 15:54 Pain Level 5 05/25/18 15:52 Comment 05/24/18 13:10 Intake & Output 05/24/18 05/25/18 05/25/18 23:59 11:59 23:59 Intake Total 1490.000 / 6555.688 0597.75 / 3309.75 1129 / 1129 Output Total 800 / 800 1250 / 1250 Balance 690.000 / 832.369 9797.75 / 2059.75 1129 / 1129 Intake: IV 1250.000 / 9603.657 8394.75 / 2759.75 209 / 209 Oral 240 / 240 550 / 550 920 / 920 Output: Urine 800 / 800 1250 / 1250 Other: Urine Color Yellow Yellow Urine Appearance Clear Clear Stool Size Large Stool Characteristics Soft Liquid Brown Emesis Description None Laboratory Results WBC 12.80 k/cumm (4.4-10.8) H 05/25/18 07:23 RBC 4.04 m/cumm (4.00-5.20) 05/25/18 07:23 Hgb 11.4 g/dL (12.0-15.5) L 05/25/18 07:23 Hct 36.5 % (36.0-46.0) 05/25/18 07:23 MCV 90.3 fL (80-95) 05/25/18 07:23 MCH 28.2 pg (27.0-33.0) 05/25/18 07:23 MCHC 31.2 g/dL (32.0-36.0) L 05/25/18 07:23 RDW 16.9 % (11.7-14.6) H 05/25/18 07:23 Plt Count 272 x1000/uL (130-400) 05/25/18 07:23 MPV 8.3 fL (8.0-11.0) 05/25/18 07:23 Sodium 135 mmol/L (136-145) L 05/25/18 07:23 Potassium 4.7 mmol/L (3.5-5.1) 05/25/18 07:23 Chloride 98 mmol/L (98-107) 05/25/18 07:23 Carbon Dioxide 28.3 mmol/L (21.0-32.0) 05/25/18 07:23 Anion Gap 8.7 mmol/L (3-11) 05/25/18 07:23 BUN 27 mg/dL (7-18) H 05/25/18 07:23 Creatinine 1.15 mg/dL (0.55-1.02) H 05/25/18 07:23 Estimated GFR/1.73 m2 47.36 (mL/min/1.73m2) 05/25/18 07:23 Glucose 150 mg/dL (70-100) H 05/25/18 07:23 Calcium 8.6 mg/dL (8.5-10.1) 05/25/18 07:23 Progress Note: Quality VTE Deep Vein Thrombosis/Pulmonary Embolism Present on Admission: No
[2018-05-25] MEDS: glipiZIDE C.R. 5 MG TABCR PO (17:05)
[2018-05-25] MEDS: Umeclidinium 7 CAP INHALER 1 CAP IH (17:43)
[2018-05-25] MEDS: Pravastatin 20 MG TAB 10 MG PO (19:58)
[2018-05-25] MEDS: Loratidine 10 MG TAB PO (21:30)
[2018-05-26] MEDS: Levothyroxine 100 MCG TAB PO (05:18)
[2018-05-26] MEDS: Acetaminophen 325 MG TAB 650 MG PO ×3 (06:36→17:21)
[2018-05-26] MEDS: POTASSIUM CHLORIDE/0.9% NACL 1,000 ML 125 MEQ IV (06:37)
[2018-05-26 07:25] VITALS: BP 157/88; PULSE 89; RESP 18; TEMP 36.7; O2SAT 97
[2018-05-26 07:41] LABS: HCT 38.2 % (36.0-46.0); HGB 12.1 g/dL (12.0-15.5); Mean Corp. HGB Concentration 31.7 g/dL (32.0-36.0); Mean Corpuscular Hemoglobin 28.5 pg (27.0-33.0); Mean Corpuscular Volume 89.9 fL (80-95); Mean Platelet Volume 8.7 fL (8.0-11.0); Platelet Count 260 x1000/uL (130-400); RBC 4.25 m/cumm (4.00-5.20); RBC Distribution Width 17.1 % (11.7-14.6); White Blood Cell Count 12.11 k/cumm (4.4-10.8)
[2018-05-26 07:56] LABS: Vancomycin, Trough 18.7 ug/mL (10.0-20.0)
[2018-05-26 08:05] LABS: Anion Gap 10.1 mmol/L (3-11); BUN 25 mg/dL (7-18); CO2 25.9 mmol/L (21.0-32.0); CREATININE 1.04 mg/dL (0.55-1.02); Calcium 9.3 mg/dL (8.5-10.1); Chloride 101 mmol/L (98-107); Estimated GFR 53.18 (mL/min/1.73m2); Glucose 165 mg/dL (70-100); Potassium 4.4 mmol/L (3.5-5.1); Sodium 137 mmol/L (136-145)
[2018-05-26] MEDS: Cyanocobalamin 500 MCG TAB 1000 MCG PO (08:28)
[2018-05-26] MEDS: Multivitamin w/Minerals TAB 1 TAB PO (08:28)
[2018-05-26] MEDS: Lactobacillus Acidophilus CAP 1 CAP PO ×2 (08:28→20:01)
[2018-05-26] MEDS: Metoprolol 50 MG TAB 100 MG PO ×2 (08:28→19:59)
[2018-05-26] MEDS: Hydrochlorothiazide 25 MG TAB PO (08:28)
[2018-05-26] MEDS: Magnesium Oxide 400 MG TAB PO ×2 (08:28→20:01)
[2018-05-26] MEDS: VANCOMYCIN 1,000 MG in Normal Saline 250 ML 167 MG IVPB (08:29)
[2018-05-26] MEDS: Meloxicam 15 MG TAB PO (08:29)
[2018-05-26] MEDS: Calcitriol 0.25 MCG CAP PO (08:29)
[2018-05-26] MEDS: Pantoprazole 40 MG TABCR PO (08:29)
[2018-05-26] MEDS: Lisinopril 10 MG TAB PO (08:29)
[2018-05-26] MEDS: Gabapentin 100 MG CAP PO ×2 (08:29→19:59)
[2018-05-26] MEDS: Enoxaparin 30 MG/0.3 ML SYR SC ×2 (08:30→19:57)
[2018-05-26] MEDS: Insulin Aspart 300 UNITS/3 ML PEN SC ×3 (08:30→17:21)
--- NOTE | 2018-05-26 08:32 | W.PM.PROGNOT ---
Assessment and Plan (1) Infected prosthetic knee joint: Current visit: Yes Status: Acute Joint cultures growing 2 types of staph epi. Both are sensitve to both vancomycin and daptomycin. I will add rifampin 300 mg bid. Allopurinol changed to 300 mg daily. Metformin re-ordered. Bandage changed. Wound benign. Exam Const Other: Undergoing nicotine withdrawal with some anxiety. Spent night in the recliner. Did well getting up with p.t. Extrem Other: Wound benign. Bandage changed by Shana New sterile bandage applied. Objective Objective Clinical Data: Abnormal lab results 05/26/18 05/26/18 Range/Units 07:25 07:25 WBC 12.11 H (4.4-10.8) k/cumm MCHC 31.7 L (32.0-36.0) g/dL RDW 17.1 H (11.7-14.6) % BUN 25 H (7-18) mg/dL Creatinine 1.04 H (0.55-1.02) mg/dL Glucose 165 H (70-100) mg/dL Vital Signs Temperature 97.2 F L 05/25/18 23:59 Temperature Source Tympanic 05/25/18 23:59 Pulse 89 05/25/18 23:59 Pulse Rhythm Regular 05/25/18 21:07 Respiratory Rate 17 05/25/18 23:59 Respiratory Effort Non-Labored 05/25/18 21:07 Respiratory Depth Normal 05/25/18 21:07 Respiratory Pattern Normal 05/25/18 21:07 Blood Pressure 119/76 05/25/18 23:59 Pulse Oximetry 97 05/25/18 23:59 Respiratory End-tidal CO2 36 05/24/18 12:33 Oxygen Delivery Method Room Air 05/25/18 23:59 Oxygen Flow Rate 0 05/25/18 23:59 Pain Level 7 05/26/18 06:36 Comment 05/24/18 13:10 Intake & Output 05/25/18 05/25/18 05/26/18 11:59 23:59 11:59 Intake Total 3549.75 / 3549.75 2462.75 / 2462.75 943.75 / 943.75 Output Total 1250 / 1250 1650 / 1650 1500 / 1500 Balance 2299.75 / 2299.75 812.75 / 812.75 -556.25 / -556.25 Intake: IV 2759.75 / 2759.75 752.75 / 752.75 943.75 / 943.75 Oral 790 / 790 1710 / 1710 Output: Urine 1250 / 1250 1650 / 1650 1500 / 1500 Other: Urine Color Yellow Yellow Yellow Urine Appearance Clear Clear Clear Urine Odor Normal None Comment Huffman huffman Stool Size Moderate Stool Characteristics Soft Laboratory Results WBC 12.11 k/cumm (4.4-10.8) H 05/26/18 07:25 RBC 4.25 m/cumm (4.00-5.20) 05/26/18 07:25 Hgb 12.1 g/dL (12.0-15.5) 05/26/18 07:25 Hct 38.2 % (36.0-46.0) 05/26/18 07:25 MCV 89.9 fL (80-95) 05/26/18 07:25 MCH 28.5 pg (27.0-33.0) 05/26/18 07:25 MCHC 31.7 g/dL (32.0-36.0) L 05/26/18 07:25 RDW 17.1 % (11.7-14.6) H 05/26/18 07:25 Plt Count 260 x1000/uL (130-400) 05/26/18 07:25 MPV 8.7 fL (8.0-11.0) 05/26/18 07:25 Sodium 137 mmol/L (136-145) 05/26/18 07:25 Potassium 4.4 mmol/L (3.5-5.1) 05/26/18 07:25 Chloride 101 mmol/L (98-107) 05/26/18 07:25 Carbon Dioxide 25.9 mmol/L (21.0-32.0) 05/26/18 07:25 Anion Gap 10.1 mmol/L (3-11) 05/26/18 07:25 BUN 25 mg/dL (7-18) H 05/26/18 07:25 Creatinine 1.04 mg/dL (0.55-1.02) H 05/26/18 07:25 Estimated GFR/1.73 m2 53.18 (mL/min/1.73m2) 05/26/18 07:25 Glucose 165 mg/dL (70-100) H 05/26/18 07:25 Calcium 9.3 mg/dL (8.5-10.1) 05/26/18 07:25 Vancomycin Trough 18.7 ug/mL (10.0-20.0) 05/26/18 07:25 Progress Note: Quality VTE Deep Vein Thrombosis/Pulmonary Embolism Present on Admission: No
[2018-05-26] MEDS: Budesonide/Formoterol 160/4.5 6 GM 60 PUFF INH IH ×2 (08:36→20:05)
[2018-05-26] MEDS: Allopurinol 300 MG TAB PO (09:52)
[2018-05-26] MEDS: Normal Saline Flush 10 ML SYR IV ×2 (10:28→19:58)
[2018-05-26] MEDS: RIFAMPIN 300 MG CAP PO ×2 (10:28→22:34)
--- NOTE | 2018-05-26 11:16 | PT.INTREAT ---
Date of service: 05/26/18 Time of Service: 11:16 PT Notes 05/26/2018 Subjective: Patient noting minimal discomfort through the left knee. Objective: Patient agreeable to PT treatment. Treatment was performed all in her room today due to disruptions in the hallway. Transfers Sit?stand: S Stand?sit: S Gait: Device: FW W Weightbearing: WBAT Assist: S Distance: 50 feet Therex: Patient performs standing and seated lower extremity strengthening exercises within her tolerance. See flow sheet for specifics Assessment: Patient progressing well with physical therapy today with good mobility and transfers. We will progress with ambulation in the hallway tomorrow as she is able to tolerate. Plan: Continue current plan of care progressing towards goals. Treatment time: 25 minutes TA x1 TP x1 Disclaimer: This note was created using [employer] voice recognition software. It was reviewed for major content. However, there may be multiple small discrepancies and errors due to the voice recognition aspects of the software.
--- NOTE | 2018-05-26 11:44 | PHARADMIT ---
Addendum entered by Anne Marie Camp 05/29/18 17:07: Pharmacy Note Subjective still working with PT Objective HR-98 other Vs okay no labs Assessment daptomycin and rifampin continue no med changes Plan continue to watch VS, labs and for med changes Original Note: Addendum entered by Trey Gilbert III 05/27/18 11:11: Pharmacy Note Subjective Feeling better, ambulating with PT Objective VS-ok pain-2-3/10 FSBS-157 No Labs, Had BM (small) Assessment Vancomcyin dc'd, changed to Daily Daptomycin (600MG) thru Sunday. Lovenox for DVT Proph Plan Watch for Creatinine Kinase levels. Discharge in three days. Original Note: Admission Pharmacy Clinical Review infection left total knee revision Code Status Full Code Current Weight 101.3 kg Renally Cleared and Narrow Therapeutic Index Meds crcl ~41ml/min QTc Value / Action Taken BP Control, Fever 157/88 afebrile Electrolytes reviewed ok DVT Prophylaxis enoxaparin Opiate Usage / Scheduled Bowel Regimen Ordered PO PRN/PRN Plt/SCr for Heparin / Enoxaparin 260/1.04 INR for Warfarin na H/H stable, WBC/Bands 12.1/38.2 wbc 12.11 Antibiotic appropriateness vancomicin IV pharmacy dosing, rifampin Cultures and Sensitivities per staph epi which may be resistant to methicillin Surgical ABX d/c within 24 hr na DM control / Insulin Dosing FS 162, insulin aspart SS, restarted metformin Heart Failure (Check EF%) (AUGUSTO's, B-Block, Diuretics) na IV to PO Switch Iv abx Home Meds Reviewed Home Meds Not Ordered fluticasone-salmeterol [Advair Diskus] sub symbicort aspirin 1 tab PO DAILY #90 tab-cap 04/16/18 [Rx Confirmed 05/24/18] fluticasone [Flovent HFA] 2 puff INHALATION BID sub mometasone Comments plans to switch to daptomycin for once daily outpt dosing
[2018-05-26 11:47] VITALS: BP 129/79; PULSE 89; RESP 17; TEMP 37.4; O2SAT 97
--- NOTE | 2018-05-26 12:51 | PDOC.CMPRO ---
- If Service Date Differs Date of service: 05/26/18 Time of Service: 12:51 Care Management Progress Note S/O: Marisel is sitting in her chair when CM visits this morning. She is engaged in conversation and talkative. She reports that she has recently seen the MD and he is pleased with her progress. Marisel reports that she no longer needs to use her immobilizer, per MD, and she has a cryo cuff to use as needed. Marisel got a PICC line placed this morning and will be returning home with it for continued IV antibiotic treatment. Per MD, CM will contact on Sunday 05/27 regarding IV abx at home vs. infusion lab daily. Marisel reports that she had a bad night and lost her temper, c/o her evening/night nurse, medications and such. She reports that she apologized to the [employer] this morning. She states that she quit smoking 'cold turkey' on and is slightly agitated. CM will continue to follow. A: 67 year old female admitted with infection of left total knee revision. P: Marisel will discharge home when medically ready per MD. Anticipate patient will discharge with increased services ( nursing, PT/OT?) and PICC line for continued IV antibiotics. Marisel will transport via [facility] [[email or web address] at discharge. She will not be needing a walker, as she has one at home. CM will continue to provide support to patient and care team regarding discharge planning and disposition.
--- NOTE | 2018-05-26 13:01 | CMPROGNOTE_ITS ---
- If Service Date Differs Date of service: 05/26/18 Time of Service: 12:51 Care Management Progress Note S/O: Marisel is sitting in her chair when CM visits this morning. She is engaged in conversation and talkative. She reports that she has recently seen the MD and he is pleased with her progress. Marisel reports that she no longer needs to use her immobilizer, per MD, and she has a cryo cuff to use as needed. Marisel got a PICC line placed this morning and will be returning home with it for continued IV antibiotic treatment. Per MD, CM will contact on Sunday 05/27 regarding IV abx at home vs. infusion lab daily. Marisel reports that she had a bad night and lost her temper, c/o her evening/night nurse, medications and such. She reports that she apologized to the [employer] this morning. She states that she quit smoking 'cold turkey' on and is slightly agitated. CM will continue to follow. A: 67 year old female admitted with infection of left total knee revision. P: Marisel will discharge home when medically ready per MD. Anticipate patient will discharge with increased services ( nursing, PT/OT?) and PICC line for continued IV antibiotics. Marisel will transport via [facility] at discharge. She will not be needing a walker, as she has one at home. CM will continue to provide support to patient and care team regarding discharge planning and disposition.
[2018-05-26 16:05] VITALS: BP 127/93; PULSE 83; RESP 18; TEMP 37.2; O2SAT 98
[2018-05-26] MEDS: metFORMIN 500 MG TAB 1000 MG PO (17:20)
[2018-05-26] MEDS: glipiZIDE C.R. 5 MG TABCR PO (17:20)
[2018-05-26] MEDS: Umeclidinium 7 CAP INHALER 1 CAP IH (18:07)
[2018-05-26] MEDS: Pravastatin 20 MG TAB 10 MG PO (19:59)
[2018-05-26] MEDS: Loratidine 10 MG TAB PO (19:59)
[2018-05-26 20:00] VITALS: BP 167/102; PULSE 100; RESP 20; TEMP 36.7; O2SAT 96
[2018-05-26] MEDS: VANCOMYCIN 1,000 MG in Normal Saline 250 ML 166 MG IVPB (22:34)
[2018-05-27] MEDS: Acetaminophen 325 MG TAB 650 MG PO ×4 (04:46→22:51)
[2018-05-27] MEDS: Levothyroxine 100 MCG TAB PO (04:46)
[2018-05-27 07:45] VITALS: BP 130/84; PULSE 87; RESP 20; TEMP 36.8; O2SAT 96
[2018-05-27] MEDS: Budesonide/Formoterol 160/4.5 6 GM 60 PUFF INH IH ×2 (08:36→20:24)
[2018-05-27] MEDS: Enoxaparin 30 MG/0.3 ML SYR SC ×2 (08:41→20:28)
[2018-05-27] MEDS: Multivitamin w/Minerals TAB 1 TAB PO (08:42)
[2018-05-27] MEDS: Magnesium Oxide 400 MG TAB PO ×2 (08:42→20:25)
[2018-05-27] MEDS: Lactobacillus Acidophilus CAP 1 CAP PO ×2 (08:42→20:25)
[2018-05-27] MEDS: Gabapentin 100 MG CAP PO ×2 (08:42→20:25)
[2018-05-27] MEDS: Meloxicam 15 MG TAB PO (08:42)
[2018-05-27] MEDS: Allopurinol 300 MG TAB PO (08:42)
[2018-05-27] MEDS: Cyanocobalamin 500 MCG TAB 1000 MCG PO (08:42)
[2018-05-27] MEDS: Hydrochlorothiazide 25 MG TAB PO (08:43)
[2018-05-27] MEDS: metFORMIN 500 MG TAB 1000 MG PO ×2 (08:43→16:56)
[2018-05-27] MEDS: Lisinopril 10 MG TAB PO (08:43)
[2018-05-27] MEDS: Pantoprazole 40 MG TABCR PO (08:43)
[2018-05-27] MEDS: Metoprolol 50 MG TAB 100 MG PO ×2 (08:43→20:25)
[2018-05-27] MEDS: Calcitriol 0.25 MCG CAP PO (08:43)
[2018-05-27] MEDS: Insulin Aspart 300 UNITS/3 ML PEN SC ×3 (08:44→16:57)
--- NOTE | 2018-05-27 09:29 | W.PM.PROGNOT ---
Assessment and Plan (1) Infected prosthetic knee joint: Start date: 05/24/18 Start time: 09:49 Current visit: Yes Status: Acute D/C vancomycin. Start Daptomycin 600 mg q 24 hr. Continue physical therapy. Continue lovenox dvt prophylaxis. Up to shower. Probable discharge 72 hrs. Exam Const Other: Feeling better. Ambulated 50 feet yesterday with physical therapy. Had PICC line placed without difficulty.No current drainage. Extrem Other: Afebrile and vital signs are stable. Mild serous drainage from incision last night which is expected. Urine culture is pending. Objective Objective Clinical Data: Vital Signs Temperature 98.2 F 05/27/18 07:45 Temperature Source Tympanic 05/27/18 07:45 Pulse 87 05/27/18 07:45 Pulse Rhythm Regular 05/26/18 19:50 Respiratory Rate 20 05/27/18 07:45 Respiratory Effort 05/26/18 19:50 Respiratory Depth Normal 05/26/18 19:50 Respiratory Pattern Normal 05/26/18 08:28 Blood Pressure 130/84 05/27/18 07:45 Pulse Oximetry 96 05/27/18 07:45 Respiratory End-tidal CO2 36 05/24/18 12:33 Oxygen Delivery Method Room Air 05/27/18 07:45 Oxygen Flow Rate 0 05/27/18 07:45 Pain Level 3 05/27/18 04:46 Comment 05/24/18 13:10 Intake & Output 05/26/18 05/26/18 05/27/18 11:59 23:59 11:59 Intake Total 2485.000 / 2485.000 740 / 740 400 / 400 Output Total 3000 / 3000 915 / 915 650 / 650 Balance -515.000 / -515.000 -175 / -175 -250 / -250 Intake: IV 1695.000 / 1695.000 250 / 250 Oral 790 / 790 740 / 740 150 / 150 Output: Urine 3000 / 3000 915 / 915 650 / 650 Other: Urine Color Yellow Light Shanon Straw Urine Appearance Clear Clear Cloudy Urine Odor None None Strong Comment huffman pt voided independently in toilet. hat in toilet. Stool Size Small Stool Characteristics Soft Voiding Methods Diaper Toilet Incontinent Laboratory Results WBC 12.11 k/cumm (4.4-10.8) H 05/26/18 07:25 RBC 4.25 m/cumm (4.00-5.20) 05/26/18 07:25 Hgb 12.1 g/dL (12.0-15.5) 05/26/18 07:25 Hct 38.2 % (36.0-46.0) 05/26/18 07:25 MCV 89.9 fL (80-95) 05/26/18 07:25 MCH 28.5 pg (27.0-33.0) 05/26/18 07:25 MCHC 31.7 g/dL (32.0-36.0) L 05/26/18 07:25 RDW 17.1 % (11.7-14.6) H 05/26/18 07:25 Plt Count 260 x1000/uL (130-400) 05/26/18 07:25 MPV 8.7 fL (8.0-11.0) 05/26/18 07:25 Sodium 137 mmol/L (136-145) 05/26/18 07:25 Potassium 4.4 mmol/L (3.5-5.1) 05/26/18 07:25 Chloride 101 mmol/L (98-107) 05/26/18 07:25 Carbon Dioxide 25.9 mmol/L (21.0-32.0) 05/26/18 07:25 Anion Gap 10.1 mmol/L (3-11) 05/26/18 07:25 BUN 25 mg/dL (7-18) H 05/26/18 07:25 Creatinine 1.04 mg/dL (0.55-1.02) H 05/26/18 07:25 Estimated GFR/1.73 m2 53.18 (mL/min/1.73m2) 05/26/18 07:25 Glucose 165 mg/dL (70-100) H 05/26/18 07:25 Calcium 9.3 mg/dL (8.5-10.1) 05/26/18 07:25 Vancomycin Trough 18.7 ug/mL (10.0-20.0) 05/26/18 07:25 Progress Note: Quality VTE Deep Vein Thrombosis/Pulmonary Embolism Present on Admission: No
--- NOTE | 2018-05-27 09:34 | W.PM.PROGNOT ---
Objective Objective Clinical Data: Vital Signs Temperature 98.2 F 05/27/18 07:45 Temperature Source Tympanic 05/27/18 07:45 Pulse 87 05/27/18 07:45 Pulse Rhythm Regular 05/27/18 08:40 Respiratory Rate 20 05/27/18 07:45 Respiratory Effort Non-Labored 05/27/18 08:40 Respiratory Depth Normal 05/27/18 08:40 Respiratory Pattern Normal 05/27/18 08:40 Blood Pressure 130/84 05/27/18 07:45 Pulse Oximetry 96 05/27/18 07:45 Respiratory End-tidal CO2 36 05/24/18 12:33 Oxygen Delivery Method Room Air 05/27/18 07:45 Oxygen Flow Rate 0 05/27/18 07:45 Pain Level 3 05/27/18 04:46 Comment 05/24/18 13:10 Intake & Output 05/26/18 05/26/18 05/27/18 11:59 23:59 11:59 Intake Total 2485.000 / 2485.000 740 / 740 400 / 400 Output Total 3000 / 3000 915 / 915 650 / 650 Balance -515.000 / -515.000 -175 / -175 -250 / -250 Intake: IV 1695.000 / 1695.000 250 / 250 Oral 790 / 790 740 / 740 150 / 150 Output: Urine 3000 / 3000 915 / 915 650 / 650 Other: Urine Color Yellow Light Shanon Straw Urine Appearance Clear Clear Cloudy Urine Odor None None Strong Comment huffman pt voided independently in toilet. hat in toilet. Stool Size Small Stool Characteristics Soft Voiding Methods Diaper Toilet Incontinent Laboratory Results WBC 12.11 k/cumm (4.4-10.8) H 05/26/18 07:25 RBC 4.25 m/cumm (4.00-5.20) 05/26/18 07:25 Hgb 12.1 g/dL (12.0-15.5) 05/26/18 07:25 Hct 38.2 % (36.0-46.0) 05/26/18 07:25 MCV 89.9 fL (80-95) 05/26/18 07:25 MCH 28.5 pg (27.0-33.0) 05/26/18 07:25 MCHC 31.7 g/dL (32.0-36.0) L 05/26/18 07:25 RDW 17.1 % (11.7-14.6) H 05/26/18 07:25 Plt Count 260 x1000/uL (130-400) 05/26/18 07:25 MPV 8.7 fL (8.0-11.0) 05/26/18 07:25 Sodium 137 mmol/L (136-145) 05/26/18 07:25 Potassium 4.4 mmol/L (3.5-5.1) 05/26/18 07:25 Chloride 101 mmol/L (98-107) 05/26/18 07:25 Carbon Dioxide 25.9 mmol/L (21.0-32.0) 05/26/18 07:25 Anion Gap 10.1 mmol/L (3-11) 05/26/18 07:25 BUN 25 mg/dL (7-18) H 05/26/18 07:25 Creatinine 1.04 mg/dL (0.55-1.02) H 05/26/18 07:25 Estimated GFR/1.73 m2 53.18 (mL/min/1.73m2) 05/26/18 07:25 Glucose 165 mg/dL (70-100) H 05/26/18 07:25 Calcium 9.3 mg/dL (8.5-10.1) 05/26/18 07:25 Vancomycin Trough 18.7 ug/mL (10.0-20.0) 05/26/18 07:25 Progress Note: Quality VTE Deep Vein Thrombosis/Pulmonary Embolism Present on Admission: No
--- NOTE | 2018-05-27 10:02 | W.PM.PROGNOT ---
Assessment and Plan (1) Infected prosthetic knee joint: Current visit: Yes Status: Acute home Subjective Interval history since last seen: feeling better. Exam Extrem Other: No knee swelling Objective Objective Clinical Data: Vital Signs Temperature 98.2 F 05/27/18 07:45 Temperature Source Tympanic 05/27/18 07:45 Pulse 87 05/27/18 07:45 Pulse Rhythm Regular 05/27/18 08:40 Respiratory Rate 20 05/27/18 07:45 Respiratory Effort Non-Labored 05/27/18 08:40 Respiratory Depth Normal 05/27/18 08:40 Respiratory Pattern Normal 05/27/18 08:40 Blood Pressure 130/84 05/27/18 07:45 Pulse Oximetry 96 05/27/18 07:45 Respiratory End-tidal CO2 36 05/24/18 12:33 Oxygen Delivery Method Room Air 05/27/18 07:45 Oxygen Flow Rate 0 05/27/18 07:45 Pain Level 3 05/27/18 04:46 Comment 05/24/18 13:10 Intake & Output 05/26/18 05/26/18 05/27/18 11:59 23:59 11:59 Intake Total 2485.000 / 2485.000 740 / 740 650 / 650 Output Total 3000 / 3000 915 / 915 650 / 650 Balance -515.000 / -515.000 -175 / -175 0 / 0 Intake: IV 1695.000 / 1695.000 250 / 250 Oral 790 / 790 740 / 740 400 / 400 Output: Urine 3000 / 3000 915 / 915 650 / 650 Other: Urine Color Yellow Light Shanon Straw Urine Appearance Clear Clear Cloudy Urine Odor None None Strong Comment huffman pt voided independently in toilet. hat in toilet. Stool Size Small Stool Characteristics Soft Voiding Methods Diaper Toilet Incontinent Laboratory Results WBC 12.11 k/cumm (4.4-10.8) H 05/26/18 07:25 RBC 4.25 m/cumm (4.00-5.20) 05/26/18 07:25 Hgb 12.1 g/dL (12.0-15.5) 05/26/18 07:25 Hct 38.2 % (36.0-46.0) 05/26/18 07:25 MCV 89.9 fL (80-95) 05/26/18 07:25 MCH 28.5 pg (27.0-33.0) 05/26/18 07:25 MCHC 31.7 g/dL (32.0-36.0) L 05/26/18 07:25 RDW 17.1 % (11.7-14.6) H 05/26/18 07:25 Plt Count 260 x1000/uL (130-400) 05/26/18 07:25 MPV 8.7 fL (8.0-11.0) 05/26/18 07:25 Sodium 137 mmol/L (136-145) 05/26/18 07:25 Potassium 4.4 mmol/L (3.5-5.1) 05/26/18 07:25 Chloride 101 mmol/L (98-107) 05/26/18 07:25 Carbon Dioxide 25.9 mmol/L (21.0-32.0) 05/26/18 07:25 Anion Gap 10.1 mmol/L (3-11) 05/26/18 07:25 BUN 25 mg/dL (7-18) H 05/26/18 07:25 Creatinine 1.04 mg/dL (0.55-1.02) H 05/26/18 07:25 Estimated GFR/1.73 m2 53.18 (mL/min/1.73m2) 05/26/18 07:25 Glucose 165 mg/dL (70-100) H 05/26/18 07:25 Calcium 9.3 mg/dL (8.5-10.1) 05/26/18 07:25 Vancomycin Trough 18.7 ug/mL (10.0-20.0) 05/26/18 07:25 Progress Note: Quality VTE Deep Vein Thrombosis/Pulmonary Embolism Present on Admission: No
[2018-05-27] MEDS: RIFAMPIN 300 MG CAP PO ×2 (10:20→21:32)
[2018-05-27] MEDS: Docusate Sodium 100 MG CAP PO (10:20)
[2018-05-27] MEDS: Normal Saline Flush 10 ML SYR IV (11:40)
[2018-05-27 11:45] VITALS: BP 135/80; PULSE 90; RESP 22; TEMP 36.9; O2SAT 97
--- NOTE | 2018-05-27 13:01 | PT.INTREAT ---
Date of service: 05/27/18 Time of Service: 13:01 PT Notes Inpatient Physical Therapy Treatment Note Date: 05/27/18 PRECAUTIONS: WBAT on left SUBJECTIVE: Marisel states she is feeling much better this admission, she feels she is getting around more independently more quickly. OBJECTIVE: Patient refused to wear gait belt during PT session. PAIN: No complaints of pain. BED MOBILITY/TRANSFERS Sit-stand: S Stand-sit: S GAIT Assistive Device: FWW Weight bearing: WBAT on L Assist: S Distance: 75' +150' Deviation: SOB, standing rest x2, seated rest x1 THEREX: Patient performed a lower extremity strengthening program in a seated position, as per flow sheet. STAIRS: Up/down 3 x 4and 2 x 6 using B rails and a step to pattern with supervision TOILETING: Patient toileted with supervision for transfers ASSESSMENT: Patient tolerated session without complaints of pain. Patient requires seated and standing rest during gait training due to SOB. Patient was able to tolerate stair training well requiring supervision only. Patient would benefit from continued gait training to increase duration tolerance, as well as continued strengthening for bilateral lower extremities. PLAN: Continue with PTs POC TREATMENT CODE/TIME: 30 minutes; TA/TP
--- NOTE | 2018-05-27 14:21 | W.PM.PROGNOT ---
Assessment and Plan (1) Infected prosthetic knee joint: Current visit: Yes Status: Acute Surgery following. Expected discharge this week with home health for IV antibiotics. Recovering well postop. (2) Hypertension: Current visit: No Status: Chronic Continue current regimen of HCTZ and AUGUSTO-I, as well as BB. (3) TRINA (obstructive sleep apnea): Current visit: No Status: Chronic Continue home BIPAP therapy. (4) Diabetes mellitus, type II: Current visit: No Status: Chronic Continue Glipizide and metformin. Sliding scale for meal coverage. Maintain on ADA diet. (5) Hypothyroidism: Current visit: No Status: Chronic Continue replacement therapy. (6) COPD (chronic obstructive pulmonary disease): Current visit: No Status: Chronic Continue home inhaler therapy with IGC and LAMA. Duonebs added on a prn basis. Currently appears quiescent. (7) DVT prophylaxis: Current visit: No Status: Acute Continue SC Lovenox. (8) Hypoparathyroidism: Current visit: No Status: Acute Currently on Calcitriol. Corrected Calcium appears normal. Monitor. Subjective Patient reports: no new complaints Interval history since last seen: Helene is a 67-year-old woman with multiple medical comorbidities significant for COPD, morbid obesity, hypertension, TRINA, ischemic heart disease, type 2 diabetes who is postop day 3 status post left revision total knee arthroplasty due to an infected prosthesis. Postoperatively she has done quite well. Medicine was consulted to manage her medical comorbidities, most notably her diabetes. Continues to work with physical therapy and is tolerating well. Tylenol for pain has been adequate. Her blood sugars are between 150-200 which is slightly elevated for her. Hypertension has not been an issue with average systolic blood pressures in the 130s. Exam Narrative Exam Narrative: General: 67yo female, obese. Well developed and well nourished. No acute distress. A/Ox3. Pleasant and cooperative. HEENT: Normocephalic, Atraumatic. Conjunctiva clear, sclera non-icteric. PERRL. EOMI. Moist mucous membranes, oropharynx clear. Neck supple, no JVD, thyromegaly or lymphadenopathy. Cardiovascular: Regular rate and rhythm, S1S2, no S3 or S4. No murmur, rub, gallop. Respiratory: Chest expansion symmetrical, respirations unlabored. Lungs clear to auscultation, no adventitious breath sounds. GI: Abdomen round, soft, non-tender to palpation. Normoactive bowel sounds in all 4 quadrants. No hepatosplenomegaly or prominent masses. : deferred Extremities: Lower extremities without deformity or edema. Left knee incision well approximated, sutures intact, minimal serosanguineous drainage from the inferior aspect. No wound dehiscence, surrounding erythema, drainage, warmth Neurological: non-focal. CN 2-12 grossly intact. Psychiatric: pleasant and cooperative. Speech clear and articulate. Mood and affect normal. Objective Objective Clinical Data: Vital Signs Temperature 36.9 C 05/27/18 11:45 Temperature Source Tympanic 05/27/18 11:45 Pulse 90 05/27/18 11:45 Pulse Rhythm Regular 05/27/18 08:40 Respiratory Rate 22 05/27/18 11:45 Respiratory Effort Non-Labored 05/27/18 08:40 Respiratory Depth Normal 05/27/18 08:40 Respiratory Pattern Normal 05/27/18 08:40 Blood Pressure 135/80 05/27/18 11:45 Pulse Oximetry 97 05/27/18 11:45 Respiratory End-tidal CO2 36 05/24/18 12:33 Oxygen Delivery Method Room Air 05/27/18 11:45 Oxygen Flow Rate 0 05/27/18 11:45 Pain Level 1 05/27/18 11:21 Comment 05/24/18 13:10 Intake & Output 05/26/18 05/27/18 05/27/18 23:59 11:59 23:59 Intake Total 740 / 740 650 / 650 300 / 300 Output Total 915 / 915 650 / 650 Balance -175 / -175 0 / 0 300 / 300 Intake: IV 250 / 250 50 / 50 Oral 740 / 740 400 / 400 250 / 250 Output: Urine 915 / 915 650 / 650 Other: Urine Color Light Shanon Straw Urine Appearance Clear Cloudy Urine Odor None Strong Comment pt voided independently in toilet. hat in toilet. Stool Size Small Stool Characteristics Soft Voiding Methods Diaper Toilet Incontinent Laboratory Results WBC 12.11 k/cumm (4.4-10.8) H 05/26/18 07:25 RBC 4.25 m/cumm (4.00-5.20) 05/26/18 07:25 Hgb 12.1 g/dL (12.0-15.5) 05/26/18 07:25 Hct 38.2 % (36.0-46.0) 05/26/18 07:25 MCV 89.9 fL (80-95) 05/26/18 07:25 MCH 28.5 pg (27.0-33.0) 05/26/18 07:25 MCHC 31.7 g/dL (32.0-36.0) L 05/26/18 07:25 RDW 17.1 % (11.7-14.6) H 05/26/18 07:25 Plt Count 260 x1000/uL (130-400) 05/26/18 07:25 MPV 8.7 fL (8.0-11.0) 05/26/18 07:25 Sodium 137 mmol/L (136-145) 05/26/18 07:25 Potassium 4.4 mmol/L (3.5-5.1) 05/26/18 07:25 Chloride 101 mmol/L (98-107) 05/26/18 07:25 Carbon Dioxide 25.9 mmol/L (21.0-32.0) 05/26/18 07:25 Anion Gap 10.1 mmol/L (3-11) 05/26/18 07:25 BUN 25 mg/dL (7-18) H 05/26/18 07:25 Creatinine 1.04 mg/dL (0.55-1.02) H 05/26/18 07:25 Estimated GFR/1.73 m2 53.18 (mL/min/1.73m2) 05/26/18 07:25 Glucose 165 mg/dL (70-100) H 05/26/18 07:25 Calcium 9.3 mg/dL (8.5-10.1) 05/26/18 07:25 Vancomycin Trough 18.7 ug/mL (10.0-20.0) 05/26/18 07:25 Progress Note: Quality VTE Deep Vein Thrombosis/Pulmonary Embolism Present on Admission: No
--- NOTE | 2018-05-27 15:11 | NT_ITS ---
Date of service: 05/27/18 Time of Service: 15:10 PT Notes 05/27/18 Patient refused afternoon PT session, stating I'm whooped this afternoon. Will attempt to resume PT services tomorrow morning. Teodora Cruz, CAR DUMPER OPERATOR HELPER
[2018-05-27 16:00] VITALS: BP 127/83; PULSE 86; RESP 20; TEMP 37.1; O2SAT 97
[2018-05-27] MEDS: glipiZIDE C.R. 5 MG TABCR PO (16:56)
--- NOTE | 2018-05-27 16:58 | PDOC.CMPRO ---
- If Service Date Differs Date of service: 05/27/18 Time of Service: 16:58 Care Management Progress Note S/O: Marisel is sitting in her chair meeting with Dr. Pisano when ROCIO visits this morning. She is engaged in conversation and talkative. ROCIO, and Marisel discussed Marisel's possible/likely discharge on , 05/30. There are questions regarding insurance coverage for daptomycin and daily IV administration. ROCIO faxed information regarding medication and PICC line to [facility] ([phone]) and spoke with Shayna ([phone]). She will review information and follow up with CM on Sunday, 05/28. ROCIO discussed IV infusion with Sussy at [facility] who confirms that they will be able to do IV administration pending insurance. A: 67 year old female admitted with infection of left total knee revision. P: Marisel will discharge home when medically ready per MD. Anticipate patient will discharge with increased services ( nursing, PT) and PICC line for continued IV antibiotics. Marisel will require daily infusions. Marisel will transport via [facility] at discharge. She will not be needing a walker, as she has one at home. ROCIO will continue to provide support to patient and care team regarding discharge planning and disposition.
--- NOTE | 2018-05-27 17:05 | CMPROGNOTE_ITS ---
- If Service Date Differs Date of service: 05/27/18 Time of Service: 16:58 Care Management Progress Note S/O: Marisel is sitting in her chair meeting with Dr. Pisano when ORCIO visits this morning. She is engaged in conversation and talkative. ROCIO, and Marisel discussed Marisel's possible/likely discharge on , 05/30. There are questions regarding insurance coverage for daptomycin and daily IV administration. ROCIO faxed information regarding medication and PICC line to [facility] ([phone]) and spoke with Shayna ([phone]). She will review information and follow up with CM on Sunday, 05/28. ROCIO discussed IV infusion with Sussy at [facility] who confirms that they will be able to do IV administration pending insurance. A: 67 year old female admitted with infection of left total knee revision. P: Marisel will discharge home when medically ready per MD. Anticipate patient will discharge with increased services ( nursing, PT) and PICC line for continued IV antibiotics. Marisel will require daily infusions. Marisel will transport via [facility] at discharge. She will not be needing a walker, as she has one at home. ROCIO will continue to provide support to patient and care team regarding discharge planning and disposition.
[2018-05-27 20:09] VITALS: BP 161/85; PULSE 105; RESP 20; TEMP 36.6; O2SAT 95
[2018-05-27] MEDS: Umeclidinium 7 CAP INHALER 1 CAP IH (20:23)
[2018-05-27] MEDS: Pravastatin 20 MG TAB 10 MG PO (20:25)
[2018-05-27] MEDS: Loratidine 10 MG TAB PO (21:33)
[2018-05-27 23:39] VITALS: BP 158/88; PULSE 89; RESP 20; TEMP 37.1; O2SAT 96
[2018-05-28 05:20] VITALS: BP 146/97; PULSE 89; RESP 16; TEMP 36.7; O2SAT 98
[2018-05-28] MEDS: Acetaminophen 325 MG TAB 650 MG PO ×3 (05:30→16:58)
[2018-05-28] MEDS: Levothyroxine 100 MCG TAB PO (05:31)
[2018-05-28 07:10] VITALS: O2SAT 93
[2018-05-28] MEDS: Budesonide/Formoterol 160/4.5 6 GM 60 PUFF INH IH ×2 (07:18→19:40)
[2018-05-28 07:30] VITALS: BP 144/83; PULSE 99; RESP 19; TEMP 36.5; O2SAT 97
--- NOTE | 2018-05-28 07:55 | W.PM.PROGNOT ---
Assessment and Plan (1) Infected prosthetic knee joint: Current visit: Yes Status: Acute Continue physical therapy as patient has 2 flights of stairs to climb. Monitor tolerance to rifampin. Subjective Patient reports: no new complaints Interval history since last seen: Up before breakfast practicing stairs with physical therapy Exam Extrem Other: Good quadricepts control. No unusual swelling. Patient showered yesterday. Objective Objective Clinical Data: Vital Signs Temperature 97.7 F 05/28/18 07:30 Temperature Source Tympanic 05/28/18 07:30 Pulse 99 H 05/28/18 07:30 Pulse Rhythm Regular 05/28/18 05:40 Respiratory Rate 19 05/28/18 07:30 Respiratory Effort Non-Labored 05/28/18 05:40 Respiratory Depth Normal 05/28/18 05:40 Respiratory Pattern Normal 05/28/18 05:40 Blood Pressure 144/83 H 05/28/18 07:30 Pulse Oximetry 97 05/28/18 07:30 Respiratory End-tidal CO2 36 05/24/18 12:33 Oxygen Delivery Method Room Air 05/28/18 07:30 Oxygen Flow Rate 0 05/28/18 07:30 Pain Level 2 05/28/18 05:30 Comment 05/24/18 13:10 Intake & Output 05/27/18 05/27/18 05/28/18 11:59 23:59 11:59 Intake Total 650 / 650 660 / 660 1000 / 1000 Output Total 650 / 650 250 / 250 500 / 500 Balance 0 / 0 410 / 410 500 / 500 Intake: IV 250 / 250 50 / 50 Oral 400 / 400 610 / 610 1000 / 1000 Output: Urine 650 / 650 250 / 250 500 / 500 Other: Urine Color Straw Yellow Light Shanon Urine Appearance Cloudy Clear Clear Urine Odor Strong Normal Normal Comment pt had a large incontinent episoide Total for 2 voids, also incontinent of large amount of urine. Stool Size Small Small Stool Characteristics Soft Soft Formed Liquid Brown Voiding Methods Toilet Toilet Toilet Diaper Diaper Laboratory Results WBC 12.11 k/cumm (4.4-10.8) H 05/26/18 07:25 RBC 4.25 m/cumm (4.00-5.20) 05/26/18 07:25 Hgb 12.1 g/dL (12.0-15.5) 05/26/18 07:25 Hct 38.2 % (36.0-46.0) 05/26/18 07:25 MCV 89.9 fL (80-95) 05/26/18 07:25 MCH 28.5 pg (27.0-33.0) 05/26/18 07:25 MCHC 31.7 g/dL (32.0-36.0) L 05/26/18 07:25 RDW 17.1 % (11.7-14.6) H 05/26/18 07:25 Plt Count 260 x1000/uL (130-400) 05/26/18 07:25 MPV 8.7 fL (8.0-11.0) 05/26/18 07:25 Sodium 137 mmol/L (136-145) 05/26/18 07:25 Potassium 4.4 mmol/L (3.5-5.1) 05/26/18 07:25 Chloride 101 mmol/L (98-107) 05/26/18 07:25 Carbon Dioxide 25.9 mmol/L (21.0-32.0) 05/26/18 07:25 Anion Gap 10.1 mmol/L (3-11) 05/26/18 07:25 BUN 25 mg/dL (7-18) H 05/26/18 07:25 Creatinine 1.04 mg/dL (0.55-1.02) H 05/26/18 07:25 Estimated GFR/1.73 m2 53.18 (mL/min/1.73m2) 05/26/18 07:25 Glucose 165 mg/dL (70-100) H 05/26/18 07:25 Calcium 9.3 mg/dL (8.5-10.1) 05/26/18 07:25 Vancomycin Trough 18.7 ug/mL (10.0-20.0) 05/26/18 07:25 Progress Note: Quality VTE Deep Vein Thrombosis/Pulmonary Embolism Present on Admission: No
[2018-05-28] MEDS: Multivitamin w/Minerals TAB 1 TAB PO (08:16)
[2018-05-28] MEDS: Meloxicam 15 MG TAB PO (08:16)
[2018-05-28] MEDS: Lactobacillus Acidophilus CAP 1 CAP PO ×2 (08:16→19:38)
[2018-05-28] MEDS: Cyanocobalamin 500 MCG TAB 1000 MCG PO (08:17)
[2018-05-28] MEDS: Gabapentin 100 MG CAP PO ×2 (08:17→19:39)
[2018-05-28] MEDS: Calcitriol 0.25 MCG CAP PO (08:17)
[2018-05-28] MEDS: metFORMIN 500 MG TAB 1000 MG PO ×2 (08:17→16:59)
[2018-05-28] MEDS: Allopurinol 300 MG TAB PO (08:17)
[2018-05-28] MEDS: Lisinopril 10 MG TAB PO (08:17)
[2018-05-28] MEDS: Magnesium Oxide 400 MG TAB PO ×2 (08:17→19:38)
[2018-05-28] MEDS: Enoxaparin 30 MG/0.3 ML SYR SC ×2 (08:18→19:40)
[2018-05-28] MEDS: Pantoprazole 40 MG TABCR PO (08:18)
[2018-05-28] MEDS: Metoprolol 50 MG TAB 100 MG PO ×2 (08:18→19:39)
[2018-05-28] MEDS: Hydrochlorothiazide 25 MG TAB PO (08:18)
[2018-05-28] MEDS: Insulin Aspart 300 UNITS/3 ML PEN SC ×2 (08:19→16:59)
--- NOTE | 2018-05-28 08:22 | PT.INTREAT ---
Date of service: 05/28/18 Time of Service: 08:22 PT Notes Inpatient Physical Therapy Treatment Note Date: 05/28/18 PRECAUTIONS: WBAT on L SUBJECTIVE: Marisel states that she slept well last night and feels good today. OBJECTIVE: PAIN: No c/o pain BED MOBILITY/TRANSFERS Sit-stand: I Stand-sit: I GAIT Assistive Device: FWW Weight bearing: WBAT on L Assist: S Distance: 75' x2 Deviation: Standing rest x1, SOB STAIRS: Up/down 9x4 and 6x6 using B rails and a step-to pattern, independently ASSESSMENT: Patient tolerated a progression with stair training, well demonstrating safety and knowledge of appropriate step-to pattern. She was able to demonstrate independence with sit<>stand transfers. Her AROM for L knee is 8-106 degrees this morning. PLAN: Continue with PT's POC TREATMENT CODE/TIME: 30 minutes; TAx2
--- NOTE | 2018-05-28 10:01 | PDOC.CMPRO ---
Care Management Progress Note S/O: Helene was sitting in her chair, just having finished breakfast when CM met with her. She was pleasant in interaction and forthcoming with information. CM reviewed community based supports and provided patient education around LT Medicaid requirements for future consideration if appropriate. Helene spoke in length about her current living situation, natural supports and how she recently quit smoking. She was focused on being healthier and losing weight. Helene discussed prior hospitalizations including recurrent revisions of her L knee. She reported she anticipated having her R knee replaced at some point but has not had full recovery of her L knee yet. She shared feeling confident in Dr. Pisano for many years and feeling issues along her clinical path have been unavoidable. A: 67 year old female admitted with infection of left total knee revision. P: Marisel will discharge home when medically ready per MD. Helene will have new orders for CHH/RN/PT and possibly OT. [facility] will deliver DAPTOmycin which Emely tolentino [facility] reports is fully covered by Helene's insurance. CM provided [facility] order form to provider for completion and faxed updated clinical information as requested. Helene will have daily infusion therapy provided by [facility]. CM [facility] to [facility] (P#[phone][facility] to resume MOW services on 05/31/18, the facility is only open MWF; CM will attempt again tomorrow.
[2018-05-28] MEDS: RIFAMPIN 300 MG CAP PO ×2 (10:18→21:22)
--- NOTE | 2018-05-28 10:44 | PT.INTREAT ---
Date of service: 05/28/18 Time of Service: 10:44 PT Notes Inpatient Physical Therapy Treatment Note Date: 05/28/18 PRECAUTIONS: WBAT on L SUBJECTIVE: [] OBJECTIVE: [] PAIN: [] BED MOBILITY/TRANSFERS Rolling L/R: [] Supine-sit: [] Sit-supine: [] Sit-stand: [] Stand-sit: [] Bed-Chair: [] Chair-bed: [] GAIT Assistive Device: [] Weight bearing: [] Assist: [] Distance: [] Deviation: [] VITALS: [] THEREX: [] STAIRS:[] ASSESSMENT: [] PLAN: [] TREATMENT CODE/TIME: []
[2018-05-28 11:30] VITALS: BP 132/73; PULSE 88; RESP 18; TEMP 36.3; O2SAT 98
--- NOTE | 2018-05-28 11:40 | PT.INTREAT ---
Date of service: 05/28/18 Time of Service: 11:40 PT Notes Inpatient Physical Therapy Treatment Note Date: 05/28/18 PRECAUTIONS: WBAT on L SUBJECTIVE: Marisel is agreeable to PT OBJECTIVE: PAIN: No c/o pain BED MOBILITY/TRANSFERS Supine-sit: S with HOB flat Sit-supine: S with HOB flat Sit-stand: I Stand-sit: I Bed-Chair: S GAIT Assistive Device: FWW Weight bearing: WBAT on L Assist: S Distance: 300' Deviation: Standing rest x4, SOB THEREX: Patient performed SLR x10 on L, and is independently performing LE strengthening program. ASSESSMENT: Patient tolerated a progression in gait distance with FWW support, requiring standing rest x4 due to SOB. Patient is now demonstrating independence with sit<>supine transfers. PLAN: Continue with PT's POC TREATMENT CODE/TIME: 25 minutes; TAx2
[2018-05-28] MEDS: Albuterol/Ipratropium 3 ML UPD VIAL UPD ×2 (11:46→17:54)
[2018-05-28] MEDS: Normal Saline Flush 10 ML SYR IV (11:55)
--- NOTE | 2018-05-28 13:00 | CMPROGNOTE_ITS ---
Care Management Progress Note S/O: Helene was sitting in her chair, just having finished breakfast when CM met with her. She was pleasant in interaction and forthcoming with information. CM reviewed community based supports and provided patient education around LT Medicaid requirements for future consideration if appropriate. Helene spoke in length about her current living situation, natural supports and how she recently quit smoking. She was focused on being healthier and losing weight. Helene discussed prior hospitalizations including recurrent revisions of her L knee. She reported she anticipated having her R knee replaced at some point but has not had full recovery of her L knee yet. She shared feeling confident in Dr. Pisano for many years and feeling issues along her clinical path have been unavoidable. A: 67 year old female admitted with infection of left total knee revision. P: Marisel will discharge home when medically ready per MD. Helene will have new orders for CHH/RN/PT and possibly OT. [facility] will deliver DAPTOmycin which Emely tolentino [facility] reports is fully covered by Helene's insurance. CM provided [facility] order form to provider for completion and faxed updated clinical information as requested. Helene will have daily infusion therapy provided by [facility]. [facility][phone][facility] to resume MOW services on 05/31/18, the facility is only open MWF; CM will attempt again tomorrow.
--- NOTE | 2018-05-28 13:56 | W.PM.PROGNOT ---
Assessment and Plan (1) Infected prosthetic knee joint: Start date: 05/28/18 Start time: 13:58 Current visit: Yes Status: Acute continue monorting rifam Subjective Patient reports: no new complaints Interval history since last seen: doing well Exam Extrem Other: no swelling Objective Objective Clinical Data: Vital Signs Temperature 97.3 F L 05/28/18 11:30 Temperature Source Tympanic 05/28/18 11:30 Pulse 88 05/28/18 11:30 Pulse Rhythm Regular 05/28/18 07:50 Respiratory Rate 18 05/28/18 11:30 Respiratory Effort Non-Labored 05/28/18 07:50 Respiratory Depth Normal 05/28/18 07:50 Respiratory Pattern Normal 05/28/18 07:50 Blood Pressure 132/73 05/28/18 11:30 Pulse Oximetry 98 05/28/18 11:30 Respiratory End-tidal CO2 36 05/24/18 12:33 Oxygen Delivery Method Room Air 05/28/18 11:30 Oxygen Flow Rate 0 05/28/18 11:30 Pain Level 5 05/28/18 13:03 Comment 05/24/18 13:10 Intake & Output 05/27/18 05/28/18 05/28/18 23:59 11:59 23:59 Intake Total 660 / 660 1490 / 1490 240 / 240 Output Total 250 / 250 500 / 500 Balance 410 / 410 990 / 990 240 / 240 Intake: IV 50 / 50 Oral 610 / 610 1490 / 1490 240 / 240 Output: Urine 250 / 250 500 / 500 Other: Urine Color Yellow Light Shanon Urine Appearance Clear Clear Urine Odor Normal Normal Comment pt had a large incontinent episoide Total for 2 voids, also incontinent of large amount of urine. Stool Size Small Stool Characteristics Soft Formed Liquid Brown Voiding Methods Toilet Toilet Diaper Diaper Laboratory Results WBC 12.11 k/cumm (4.4-10.8) H 05/26/18 07:25 RBC 4.25 m/cumm (4.00-5.20) 05/26/18 07:25 Hgb 12.1 g/dL (12.0-15.5) 05/26/18 07:25 Hct 38.2 % (36.0-46.0) 05/26/18 07:25 MCV 89.9 fL (80-95) 05/26/18 07:25 MCH 28.5 pg (27.0-33.0) 05/26/18 07:25 MCHC 31.7 g/dL (32.0-36.0) L 05/26/18 07:25 RDW 17.1 % (11.7-14.6) H 05/26/18 07:25 Plt Count 260 x1000/uL (130-400) 05/26/18 07:25 MPV 8.7 fL (8.0-11.0) 05/26/18 07:25 Sodium 137 mmol/L (136-145) 05/26/18 07:25 Potassium 4.4 mmol/L (3.5-5.1) 05/26/18 07:25 Chloride 101 mmol/L (98-107) 05/26/18 07:25 Carbon Dioxide 25.9 mmol/L (21.0-32.0) 05/26/18 07:25 Anion Gap 10.1 mmol/L (3-11) 05/26/18 07:25 BUN 25 mg/dL (7-18) H 05/26/18 07:25 Creatinine 1.04 mg/dL (0.55-1.02) H 05/26/18 07:25 Estimated GFR/1.73 m2 53.18 (mL/min/1.73m2) 05/26/18 07:25 Glucose 165 mg/dL (70-100) H 05/26/18 07:25 Calcium 9.3 mg/dL (8.5-10.1) 05/26/18 07:25 Vancomycin Trough 18.7 ug/mL (10.0-20.0) 05/26/18 07:25 Progress Note: Quality VTE Deep Vein Thrombosis/Pulmonary Embolism Present on Admission: No
[2018-05-28 16:01] VITALS: BP 114/75; PULSE 88; RESP 20; TEMP 36.7; O2SAT 97
[2018-05-28] MEDS: glipiZIDE C.R. 5 MG TABCR PO (16:58)
[2018-05-28] MEDS: Umeclidinium 7 CAP INHALER 1 CAP IH (17:32)
[2018-05-28 19:36] VITALS: BP 126/75; PULSE 99; RESP 20; TEMP 37; O2SAT 96
[2018-05-28] MEDS: Pravastatin 20 MG TAB 10 MG PO (19:39)
[2018-05-28] MEDS: Docusate Sodium 100 MG CAP PO (19:40)
[2018-05-28] MEDS: Loratidine 10 MG TAB PO (21:21)
[2018-05-29] VITALS (9 sets, daily range): BP systolic 114–148; BP diastolic 70–84; PULSE 89–103; RESP 18–20; TEMP 36.1–37; O2SAT 92–98
[2018-05-29] MEDS: Levothyroxine 100 MCG TAB PO (06:29)
[2018-05-29] MEDS: Acetaminophen 325 MG TAB 650 MG PO ×4 (06:29→21:14)
[2018-05-29] MEDS: Budesonide/Formoterol 160/4.5 6 GM 60 PUFF INH IH ×2 (08:50→21:15)
--- NOTE | 2018-05-29 09:36 | PDOC.CMPRO ---
- If Service Date Differs Date of service: 05/29/18 Time of Service: 09:36 Care Management Progress Note S/O: Marisel was sitting in bed eating breakfast when CM met with her. She was pleasant in interaction and forthcoming with information. She reports that her stomach hurts this morning and that she is concerned because her knee is slightly reddened in color in comparison with past days. CM and Marisel discussed Marisel's likely discharge home on . All is in place with [facility] and [facility] for daily infusion of daptomycin. Marisel requested that CM phone [facility] and [facility] regarding her homemaker services for 05/30. Per Sussy at , no homemaker services will be rendered on ; possibly 05/31. A: 67 year old female admitted with infection of left total knee revision. P: Marisel will discharge home when medically ready per MD. Marisel will have new orders for CHH/RN/PT and possibly OT. [facility] will deliver Daptomycin which Emely tolentino [facility] reports is fully covered by Marisel's insurance. ROCIO provided [facility] order form to provider for completion and faxed updated clinical information as requested. Marisel will have daily infusion therapy provided by [facility]. [facility]P#[phone][facility] to resume MOW services on 05/31/18. ROCIO spoke with Liliana who relayed that service would resume on Sunday. ROCIO will continue to offer support to patient and care team regarding discharge planning and disposition.
[2018-05-29] MEDS: Lisinopril 10 MG TAB PO (09:44)
[2018-05-29] MEDS: Allopurinol 300 MG TAB PO (09:44)
[2018-05-29] MEDS: RIFAMPIN 300 MG CAP PO ×2 (09:44→21:14)
[2018-05-29] MEDS: Enoxaparin 30 MG/0.3 ML SYR SC ×2 (09:44→21:14)
--- NOTE | 2018-05-29 09:44 | CMPROGNOTE_ITS ---
- If Service Date Differs Date of service: 05/29/18 Time of Service: 09:36 Care Management Progress Note S/O: Marisel was sitting in bed eating breakfast when CM met with her. She was pleasant in interaction and forthcoming with information. She reports that her stomach hurts this morning and that she is concerned because her knee is slightly reddened in color in comparison with past days. CM and Marisel discussed Marisel's likely discharge home on . All is in place with [facility] and [facility] for daily infusion of daptomycin. Marisel requested that CM phone [facility] and [facility] regarding her homemaker services for 05/30. Per Sussy at , no homemaker services will be rendered on ; possibly 05/31. A: 67 year old female admitted with infection of left total knee revision. P: Marisel will discharge home when medically ready per MD. Marisel will have new orders for CHH/RN/PT and possibly OT. [facility] will deliver Daptomycin which Emely tolentino [facility] reports is fully covered by Marisel's insurance. ROCIO provided [facility] order form to provider for completion and faxed updated clinical information as requested. Marisel will have daily infusion therapy provided by [facility]. [facility] (P#[phone][facility] to resume MOW services on 05/31/18. ROCIO spoke with Liliana who relayed that service would resume on Sunday. ROCIO will continue to offer support to patient and care team regarding discharge planning and disposition.
[2018-05-29] MEDS: Metoprolol 50 MG TAB 100 MG PO ×2 (09:45→21:14)
[2018-05-29] MEDS: Magnesium Oxide 400 MG TAB PO ×2 (09:45→21:14)
[2018-05-29] MEDS: metFORMIN 500 MG TAB 1000 MG PO ×2 (09:45→17:00)
[2018-05-29] MEDS: Calcitriol 0.25 MCG CAP PO (09:45)
[2018-05-29] MEDS: Lactobacillus Acidophilus CAP 1 CAP PO ×2 (09:46→21:14)
[2018-05-29] MEDS: Gabapentin 100 MG CAP PO ×2 (09:46→21:14)
[2018-05-29] MEDS: Meloxicam 15 MG TAB PO (09:46)
[2018-05-29] MEDS: Multivitamin w/Minerals TAB 1 TAB PO (09:46)
[2018-05-29] MEDS: Docusate Sodium 100 MG CAP PO (09:47)
[2018-05-29] MEDS: Pantoprazole 40 MG TABCR PO (09:47)
[2018-05-29] MEDS: Hydrochlorothiazide 25 MG TAB PO (09:48)
[2018-05-29] MEDS: Cyanocobalamin 500 MCG TAB 1000 MCG PO (09:48)
--- NOTE | 2018-05-29 10:35 | PT.INTREAT ---
Date of service: 05/29/18 Time of Service: 10:35 PT Notes Inpatient Physical Therapy Treatment Note Date: 05/29/18 PRECAUTIONS: WBAT on L SUBJECTIVE: Marisel states that she is not feeling well today, she feels nauseous and is concerned about some new redness and warmth that has appeared around her L knee. OBJECTIVE: PAIN: Patient c/o R knee discomfort with stair training BED MOBILITY/TRANSFERS Sit-stand: I Stand-sit: I GAIT Assistive Device: FWW Weight bearing: WBAT on L Assist: S Distance: 75' x2 Deviation: SOB STAIRS: Up/down 12x4 and 8x6 using B rails and a step-to pattern, independently. ASSESSMENT: Patient tolerated session well, with some SOB and complaints of R knee discomfort with stairs. Patient did not c/o L knee discomfort throughout session. Should would benefit from general conditioning for improved tolerance of increased gait distances and with performing daily functional tasks. PLAN: Continue with PT's POC TREATMENT CODE/TIME: 30 minutes; TAx2
[2018-05-29] MEDS: Insulin Aspart 300 UNITS/3 ML PEN SC (12:09)
[2018-05-29] MEDS: Normal Saline Flush 10 ML SYR IV (12:11)
--- NOTE | 2018-05-29 13:27 | W.PM.PROGNOT ---
Assessment and Plan (1) Infected prosthetic knee joint: Current visit: Yes Status: Acute Observation and continued physical therapy. Current wound status should not interfere with discharge status. Patient to receive daptomycin via PICC line along with oral rifampin. Exam Const Other: Some burning over left knee incision with sero-sanguinous drainage over inferior portion of incision. Mild erythema. Objective Objective Clinical Data: Vital Signs Temperature 97.0 F L 05/29/18 11:35 Temperature Source Temporal Artery Scan 05/29/18 11:35 Pulse 93 H 05/29/18 11:35 Pulse Rhythm Regular 05/29/18 09:30 Respiratory Rate 18 05/29/18 11:35 Respiratory Effort Short of Breath 05/29/18 09:30 Respiratory Depth Normal 05/29/18 09:30 Respiratory Pattern Normal 05/29/18 09:30 Blood Pressure 118/73 05/29/18 11:35 Pulse Oximetry 98 05/29/18 11:35 Respiratory End-tidal CO2 36 05/24/18 12:33 Oxygen Delivery Method Room Air 05/29/18 11:35 Oxygen Flow Rate 0 05/29/18 11:35 Pain Level 6 05/29/18 12:10 Comment 05/29/18 09:30 Intake & Output 05/28/18 05/29/18 05/29/18 23:59 11:59 23:59 Intake Total 770 / 770 150 / 150 350 / 350 Output Total 900 / 900 Balance 770 / 770 -750 / -750 350 / 350 Intake: IV 50 / 50 Oral 720 / 720 150 / 150 350 / 350 Output: Urine 900 / 900 Other: Urine Color Yellow Straw Urine Appearance Clear Clear Urine Odor Normal Comment pt voiding independently Stool Size Large Stool Characteristics Formed Hard Brown Voiding Methods Toilet Toilet Laboratory Results WBC 12.11 k/cumm (4.4-10.8) H 05/26/18 07:25 RBC 4.25 m/cumm (4.00-5.20) 05/26/18 07:25 Hgb 12.1 g/dL (12.0-15.5) 05/26/18 07:25 Hct 38.2 % (36.0-46.0) 05/26/18 07:25 MCV 89.9 fL (80-95) 05/26/18 07:25 MCH 28.5 pg (27.0-33.0) 05/26/18 07:25 MCHC 31.7 g/dL (32.0-36.0) L 05/26/18 07:25 RDW 17.1 % (11.7-14.6) H 05/26/18 07:25 Plt Count 260 x1000/uL (130-400) 05/26/18 07:25 MPV 8.7 fL (8.0-11.0) 05/26/18 07:25 Sodium 137 mmol/L (136-145) 05/26/18 07:25 Potassium 4.4 mmol/L (3.5-5.1) 05/26/18 07:25 Chloride 101 mmol/L (98-107) 05/26/18 07:25 Carbon Dioxide 25.9 mmol/L (21.0-32.0) 05/26/18 07:25 Anion Gap 10.1 mmol/L (3-11) 05/26/18 07:25 BUN 25 mg/dL (7-18) H 05/26/18 07:25 Creatinine 1.04 mg/dL (0.55-1.02) H 05/26/18 07:25 Estimated GFR/1.73 m2 53.18 (mL/min/1.73m2) 05/26/18 07:25 Glucose 165 mg/dL (70-100) H 05/26/18 07:25 Calcium 9.3 mg/dL (8.5-10.1) 05/26/18 07:25 Vancomycin Trough 18.7 ug/mL (10.0-20.0) 05/26/18 07:25 Objective Narrative Objective Narrative: Moderate soft tissue swelling. Able to perform well with physical therapy. Knee stability has been good Progress Note: Quality VTE Deep Vein Thrombosis/Pulmonary Embolism Present on Admission: No
--- NOTE | 2018-05-29 14:51 | PT.INTREAT ---
Date of service: 05/29/18 Time of Service: 14:51 PT Notes Inpatient Physical Therapy Treatment Note Date: 05/29/18 PRECAUTIONS: WBAT on L SUBJECTIVE: Marisel reports that she discussed her concern regarding the redness and temperature change in her L knee with Dr. Pisano earlier today. Marisel states that she feels that she will be ready for discharge to home tomorrow. OBJECTIVE: PAIN: Patient complained of pain in L knee with ther ex BED MOBILITY/TRANSFERS Sit-stand: I Stand-sit: I GAIT Assistive Device: FWW Weight bearing: WBAT on L Assist: S Distance: 300' Deviation: SOB THEREX: Patient completed a lower extremity strengthening program in both the seated and standing position, as per flow sheet. Patient experienced pain in L knee with active knee flexion, which limited her ability to perform LAQ exercise. Ice pack to L knee at end of session. ASSESSMENT: Patient tolerated session with complaints of L knee pain with ther ex, as well as SOB with gait training. Patient would benefit from continued general conditioning to improve her tolerance with gait training and other daily functional activities. PLAN: Continue with PTs POC TREATMENT CODE/TIME: 30 minutes; TA/TP
--- NOTE | 2018-05-29 15:51 | CHAPLAIN ---
Helene was sitting up in her chair when I visited. She has some concern because the incision area is more red today, she said. Helene was pleasant and easily engaged in a conversation. She enjoyed having the therapy dogs visit her today.
[2018-05-29] MEDS: Umeclidinium 7 CAP INHALER 1 CAP IH (16:49)
[2018-05-29] MEDS: glipiZIDE C.R. 5 MG TABCR PO (17:00)
[2018-05-29] MEDS: Pravastatin 20 MG TAB 10 MG PO (21:13)
[2018-05-29] MEDS: Loratidine 10 MG TAB PO (21:14)
[2018-05-30 01:20] VITALS: BP 137/76; PULSE 95; RESP 19; TEMP 36.4; O2SAT 95
[2018-05-30 04:00] VITALS: BP 125/73; PULSE 99; RESP 18; TEMP 36.5; O2SAT 96
[2018-05-30] MEDS: Levothyroxine 100 MCG TAB PO (06:19)
[2018-05-30] MEDS: Normal Saline Flush 10 ML SYR IV ×2 (06:58→11:08)
[2018-05-30] MEDS: Acetaminophen 325 MG TAB 650 MG PO ×2 (06:58→13:05)
[2018-05-30 07:35] VITALS: BP 122/74; PULSE 90; RESP 18; TEMP 36; O2SAT 96
--- NOTE | 2018-05-30 07:59 | W.PM.DS.N ---
DS: Diagnosis Discharge Diagnosis (1) Infected prosthetic knee joint: Status: Acute Discharge Plan Discharge Details Reason For Visit: INFECTION (L) TOTAL KNEE REVISION Admit Date/Time: 05/24/18 07:36 Admit Provider: Gage Pisano Attending Provider: Gage Pisano Primary Care Provider: Joan Linares Home Meds and New Rx's Prescriptions: No Action nebulizer and compressor [NasoNeb Nasal Nebulizer] 1 EACH device 1 ea Miscellaneous DIRECTED Qty: 1 RF: 0 albuterol sulfate [ProAir HFA] 8.5 GM HFA aerosol inhaler 2 puff Inhalation Q6H PRN Qty: 1 RF: 3 hydrochlorothiazide 50 MG tablet 0.5 tab PO DAILY Qty: 45 RF: 4 pravastatin 10 MG tablet 10 mg PO DAILY Qty: 90 RF: 4 allopurinol [Zyloprim] 300 MG tablet 1 tab PO noon Qty: 90 RF: 4 levothyroxine 200 MCG tablet 200 mcg PO DAILY Qty: 90 RF: 12 ARSEN MAG ZINC + D3 TABLET 1 EACH Tablet 1 ea PO DAILY Qty: 100 RF: 12 blood sugar diagnostic [Blood Glucose Test] 1 EACH strip 1 ea Miscellaneous 1-2 times daily Qty: 120 RF: 4 lancets 1 EACH misc 1 ea Miscellaneous DAILY Qty: 100 RF: 4 fluticasone-salmeterol [Advair Diskus] 1 EACH blister with device 1 puff Inhalation BID Qty: 3 RF: 4 cyanocobalamin (vitamin B-12) [Vitamin B-12] 1,000 MCG tablet 1,000 mcg PO DAILY Qty: 90 RF: 11 metoprolol tartrate 100 MG tablet 100 mg PO BID Qty: 180 RF: 12 meloxicam [Mobic] 15 MG tablet 1 tab PO DAILY Qty: 90 RF: 4 lisinopril 10 MG tablet 10 mg PO DAILY Qty: 90 RF: 12 aspirin 81 MG tablet,chewable 1 tab PO DAILY Qty: 90 RF: 12 metformin [Glucophage] 1,000 MG tablet 1,000 mg PO BID Qty: 225 RF: 4 loratadine [Claritin] 10 MG tablet 10 mg PO HS Qty: 90 RF: 3 fluticasone [Flovent HFA] 12 GM HFA aerosol inhaler 2 puff Inhalation BID Qty: 1 RF: 3 acetaminophen [Mapap Extra Strength] 500 MG tablet 500 mg PO PRN PRNRF: 0 gabapentin 300 MG capsule 100 mg PO BID RF: 0 glipizide 5 MG tablet extended release 24hr 5 mg PO HS RF: 0 calcitriol 0.25 MCG capsule 1 tab PO .NOON RF: 0 magnesium oxide 500 MG capsule 1 cap PO BID RF: 0 umeclidinium [Incruse Ellipta] 62.5 MCG blister with device 1 puff Inhalation HS RF: 0 DS: Summary Quality: VTE Deep Vein Thrombosis/Pulmonary Embolism Present on Admission: No Exam Extrem Right lower extremity: edema Other: Incision is swollen with moderate edema and mild erythema as expected with revision total knee. Scant drainage from inferioraspect. No gross purulence. Swelling is better than yesterday. DS: Data Vitals/I&O Vitals and I&O: Vital Signs Temperature 97.7 F 05/30/18 04:00 Temperature Source Temporal Artery Scan 05/30/18 04:00 Pulse 99 H 05/30/18 04:00 Pulse Rhythm Regular 05/29/18 19:30 Respiratory Rate 18 05/30/18 04:00 Respiratory Effort Non-Labored 05/29/18 19:30 Respiratory Depth Normal 05/29/18 19:30 Respiratory Pattern Normal 05/29/18 19:30 Blood Pressure 125/73 05/30/18 04:00 Pulse Oximetry 96 05/30/18 04:00 Respiratory End-tidal CO2 36 05/24/18 12:33 Oxygen Delivery Method Room Air 05/30/18 04:00 Oxygen Flow Rate 0 05/30/18 04:00 Pain Level 5 05/29/18 17:01 Comment 05/29/18 21:31 Intake & Output 05/29/18 05/29/18 05/30/18 11:59 23:59 11:59 Intake Total 150 / 150 350 / 350 Output Total 900 / 900 300 / 300 Balance -750 / -750 350 / 350 -300 / -300 Intake: Oral 150 / 150 350 / 350 Output: Urine 900 / 900 300 / 300 Other: Urine Color Straw Yellow Yellow Urine Appearance Clear Clear Clear Urine Odor Normal Normal Comment pt voided in toilet, no measuring device available Stool Size Large Stool Characteristics Formed Brown Voiding Methods Toilet Toilet Toilet Bedside Commode Pending studies at discharge: CARDIAC STRESS TEST NEC (09/22/04) CLOSED ENDOSCOPIC BIOPSY OF LARGE INTESTINE (08/09/05) DIGITAL RECTAL EXAM (05/11/97) Division of joint capsule, ligament, or cartilage, knee (11/25/14) ENDOSCOPIC BIOPSY OF RECTUM (08/09/05) Exploration of tendon sheath (08/23/07) Introduction of Other Therapeutic Substance into Respiratory Tract, Via Natural or Artificial Opening (05/31/16) Measurement of systemic arterial blood gases (03/12/12) Monitoring of Cardiac Electrical Activity, External Approach (04/06/16) Other cardiovascular stress test (09/01/12) Other nonoperative respiratory measurements (07/03/07) Other oxygen enrichment (02/05/15) Other repair of the collateral ligaments (02/05/15) Other suture of tendon (02/05/15) Release of carpal tunnel (01/29/08) Removal of Synthetic Substitute from Left Knee Joint, Open Approach (05/31/16) Removal of nail, nail bed, or nail fold (02/09/15) Replacement of Left Knee Joint with Synthetic Substitute, Cemented, Open Approach (05/31/16) Revision of knee replacement, femoral component (02/05/15) Revision of knee replacement, tibial component (02/05/15) Supplement Left Knee Tendon with Nonautologous Tissue Substitute, Open Approach (05/31/16) Total knee replacement (11/25/14) VENOUS PUNCTURE NEC (09/22/04) WBC 12.11 k/cumm (4.4-10.8) H 05/26/18 07:25 RBC 4.25 m/cumm (4.00-5.20) 05/26/18 07:25 Hgb 12.1 g/dL (12.0-15.5) 05/26/18 07:25 Hct 38.2 % (36.0-46.0) 05/26/18 07:25 MCV 89.9 fL (80-95) 05/26/18 07:25 MCH 28.5 pg (27.0-33.0) 05/26/18 07:25 MCHC 31.7 g/dL (32.0-36.0) L 05/26/18 07:25 RDW 17.1 % (11.7-14.6) H 05/26/18 07:25 Plt Count 260 x1000/uL (130-400) 05/26/18 07:25 MPV 8.7 fL (8.0-11.0) 05/26/18 07:25 Sodium 137 mmol/L (136-145) 05/26/18 07:25 Potassium 4.4 mmol/L (3.5-5.1) 05/26/18 07:25 Chloride 101 mmol/L (98-107) 05/26/18 07:25 Carbon Dioxide 25.9 mmol/L (21.0-32.0) 05/26/18 07:25 Anion Gap 10.1 mmol/L (3-11) 05/26/18 07:25 BUN 25 mg/dL (7-18) H 05/26/18 07:25 Creatinine 1.04 mg/dL (0.55-1.02) H 05/26/18 07:25 Estimated GFR/1.73 m2 53.18 (mL/min/1.73m2) 05/26/18 07:25 Glucose 165 mg/dL (70-100) H 05/26/18 07:25 Calcium 9.3 mg/dL (8.5-10.1) 05/26/18 07:25 Vancomycin Trough 18.7 ug/mL (10.0-20.0) 05/26/18 07:25
--- NOTE | 2018-05-30 08:02 | W.PM.DS.N ---
DS: Diagnosis Discharge Diagnosis (1) Infected prosthetic knee joint: Status: Acute Discharge Plan Disposition Patient Disposition: HOME W/HOME HEALTH SERVICE Condition: Improving Discharge Details Reason For Visit: INFECTION (L) TOTAL KNEE REVISION Admit Date/Time: 05/24/18 07:36 Admit Provider: Gage Pisano Attending Provider: Gage Pisano Primary Care Provider: Joan Linares Hospital Course Hospital Course: Patient was admitted on 05/24/2018. Cultures taken before surgery demonstrates 2 types of staph epidermidis both sensitive to vancomycin and daptomycin. Patient was initially maintained on vancomycin and trough levels were acceptable. It was clear that she would need to be on a 6-week course of intravenous antibiotics. It was clear that she would need to be on a 6-week course of IV antibiotics. Therefore she was switched to once daily IV daptomycin a PICC line was infill instituted without difficulty. In addition to daptomycin the patient was started on rifampin 300 mg twice daily. She tolerated that well. During her hospital stay she was maintained on Lovenox 30 mg subcu twice daily. Home Meds and New Rx's Prescriptions: New rifampin [Rifadin] 300 mg Capsule 300 mg PO Q12H Qty: 70 RF: 0 Continue albuterol sulfate [ProAir HFA] 8.5 GM HFA aerosol inhaler 2 puff Inhalation Q6H PRN Qty: 1 RF: 3 hydrochlorothiazide 50 MG tablet 0.5 tab PO DAILY Qty: 45 RF: 4 pravastatin 10 MG tablet 10 mg PO DAILY Qty: 90 RF: 4 allopurinol [Zyloprim] 300 MG tablet 1 tab PO noon Qty: 90 RF: 4 levothyroxine 200 MCG tablet 200 mcg PO DAILY Qty: 90 RF: 12 fluticasone-salmeterol [Advair Diskus] 1 EACH blister with device 1 puff Inhalation BID Qty: 3 RF: 4 cyanocobalamin (vitamin B-12) [Vitamin B-12] 1,000 MCG tablet 1,000 mcg PO DAILY Qty: 90 RF: 11 metoprolol tartrate 100 MG tablet 100 mg PO BID Qty: 180 RF: 12 meloxicam [Mobic] 15 MG tablet 1 tab PO DAILY Qty: 90 RF: 4 lisinopril 10 MG tablet 10 mg PO DAILY Qty: 90 RF: 12 aspirin 81 MG tablet,chewable 1 tab PO DAILY Qty: 90 RF: 12 metformin [Glucophage] 1,000 MG tablet 1,000 mg PO BID Qty: 225 RF: 4 fluticasone [Flovent HFA] 12 GM HFA aerosol inhaler 2 puff Inhalation BID Qty: 1 RF: 3 acetaminophen [Mapap Extra Strength] 500 MG tablet 500 mg PO PRN PRNRF: 0 glipizide 5 MG tablet extended release 24hr 5 mg PO HS RF: 0 calcitriol 0.25 MCG capsule 1 tab PO .NOON RF: 0 magnesium oxide 500 MG capsule 1 cap PO BID RF: 0 umeclidinium [Incruse Ellipta] 62.5 MCG blister with device 1 puff Inhalation HS RF: 0 No Action nebulizer and compressor [NasoNeb Nasal Nebulizer] 1 EACH device 1 ea Miscellaneous DIRECTED Qty: 1 RF: 0 ARSEN MAG ZINC + D3 TABLET 1 EACH Tablet 1 ea PO DAILY Qty: 100 RF: 12 blood sugar diagnostic [Blood Glucose Test] 1 EACH strip 1 ea Miscellaneous 1-2 times daily Qty: 120 RF: 4 lancets 1 EACH misc 1 ea Miscellaneous DAILY Qty: 100 RF: 4 loratadine [Claritin] 10 MG tablet 10 mg PO HS Qty: 90 RF: 3 gabapentin 300 MG capsule 100 mg PO BID RF: 0 Discharge Instructions Instructions: Total Knee Discharge Instructions Additional Instructions: Use your knee regularly. Perform them on your own iaddition to performing them with home health physical therapy. Take your regular regular medications as prescribed by Dr. Linares before for surgery. In addition take rifampin 300 mg twice daily. This works with daptomycin and fighting her infection. Follow-up with Dr. Pisano in about 1 week for stitch removal. Take a baby aspirin twice a day for 2 weeks to prevent blood clots. After that you may go to her usual once a day dose. You may get her incision wet in the shower with soap and water. Gently pat the stitches dry and leave them open to the air. If drainage continues cover with gauze as needed. Stand Alone Forms: Nursing Discharge Form Referrals: Gage Pisano MD [ [facility] STAFF PHYSICIAN] - Activity:: Activity as Tolerated Equipment/Supplies:: Walker Diet:: Carb Counting Discharge Orders Discharge Orders: Discharge Order (Routine); Ordered 05/30/18 Ordered By: Gage Pisano DS: Summary Quality: VTE Deep Vein Thrombosis/Pulmonary Embolism Present on Admission: No DS: Data Vitals/I&O Vitals and I&O: Vital Signs Temperature 97.7 F 05/30/18 04:00 Temperature Source Temporal Artery Scan 05/30/18 04:00 Pulse 99 H 05/30/18 04:00 Pulse Rhythm Regular 05/29/18 19:30 Respiratory Rate 18 05/30/18 04:00 Respiratory Effort Non-Labored 05/29/18 19:30 Respiratory Depth Normal 05/29/18 19:30 Respiratory Pattern Normal 05/29/18 19:30 Blood Pressure 125/73 05/30/18 04:00 Pulse Oximetry 96 05/30/18 04:00 Respiratory End-tidal CO2 36 05/24/18 12:33 Oxygen Delivery Method Room Air 05/30/18 04:00 Oxygen Flow Rate 0 05/30/18 04:00 Pain Level 5 05/29/18 17:01 Comment 05/29/18 21:31 Intake & Output 05/29/18 05/29/18 05/30/18 11:59 23:59 11:59 Intake Total 150 / 150 350 / 350 Output Total 900 / 900 300 / 300 Balance -750 / -750 350 / 350 -300 / -300 Intake: Oral 150 / 150 350 / 350 Output: Urine 900 / 900 300 / 300 Other: Urine Color Straw Yellow Yellow Urine Appearance Clear Clear Clear Urine Odor Normal Normal Comment pt voided in toilet, no measuring device available Stool Size Large Stool Characteristics Formed Brown Voiding Methods Toilet Toilet Toilet Bedside Commode Pending studies at discharge: CARDIAC STRESS TEST NEC (09/22/04) CLOSED ENDOSCOPIC BIOPSY OF LARGE INTESTINE (08/09/05) DIGITAL RECTAL EXAM (05/11/97) Division of joint capsule, ligament, or cartilage, knee (11/25/14) ENDOSCOPIC BIOPSY OF RECTUM (08/09/05) Exploration of tendon sheath (08/23/07) Introduction of Other Therapeutic Substance into Respiratory Tract, Via Natural or Artificial Opening (05/31/16) Measurement of systemic arterial blood gases (03/12/12) Monitoring of Cardiac Electrical Activity, External Approach (04/06/16) Other cardiovascular stress test (09/01/12) Other nonoperative respiratory measurements (07/03/07) Other oxygen enrichment (02/05/15) Other repair of the collateral ligaments (02/05/15) Other suture of tendon (02/05/15) Release of carpal tunnel (01/29/08) Removal of Synthetic Substitute from Left Knee Joint, Open Approach (05/31/16) Removal of nail, nail bed, or nail fold (02/09/15) Replacement of Left Knee Joint with Synthetic Substitute, Cemented, Open Approach (05/31/16) Revision of knee replacement, femoral component (02/05/15) Revision of knee replacement, tibial component (02/05/15) Supplement Left Knee Tendon with Nonautologous Tissue Substitute, Open Approach (05/31/16) Total knee replacement (11/25/14) VENOUS PUNCTURE NEC (09/22/04) WBC 12.11 k/cumm (4.4-10.8) H 05/26/18 07:25 RBC 4.25 m/cumm (4.00-5.20) 05/26/18 07:25 Hgb 12.1 g/dL (12.0-15.5) 05/26/18 07:25 Hct 38.2 % (36.0-46.0) 05/26/18 07:25 MCV 89.9 fL (80-95) 05/26/18 07:25 MCH 28.5 pg (27.0-33.0) 05/26/18 07:25 MCHC 31.7 g/dL (32.0-36.0) L 05/26/18 07:25 RDW 17.1 % (11.7-14.6) H 05/26/18 07:25 Plt Count 260 x1000/uL (130-400) 05/26/18 07:25 MPV 8.7 fL (8.0-11.0) 05/26/18 07:25 Sodium 137 mmol/L (136-145) 05/26/18 07:25 Potassium 4.4 mmol/L (3.5-5.1) 05/26/18 07:25 Chloride 101 mmol/L (98-107) 05/26/18 07:25 Carbon Dioxide 25.9 mmol/L (21.0-32.0) 09/30/18 07:25 Anion Gap 10.1 mmol/L (3-11) 05/26/18 07:25 BUN 25 mg/dL (7-18) H 05/26/18 07:25 Creatinine 1.04 mg/dL (0.55-1.02) H 05/26/18 07:25 Estimated GFR/1.73 m2 53.18 (mL/min/1.73m2) 05/26/18 07:25 Glucose 165 mg/dL (70-100) H 05/26/18 07:25 Calcium 9.3 mg/dL (8.5-10.1) 05/26/18 07:25 Vancomycin Trough 18.7 ug/mL (10.0-20.0) 05/26/18 07:25
--- NOTE | 2018-05-30 08:26 | PDOC.HHF2F ---
1. Encounter Date and Reason I certify that ROBERT SEVERINO was seen by Gage Pisano on 05/30/18 and that I had a [id number] encounter with this patient that meets the physician face to face encounter requirements. 2. Clinical Findings Supporting Skilled Need and Homebound Status I certify that home health services are medically necessary, include either intermittent intermediate and/or physical/speech therapy, and that this patient is homebound in that absences from the home require considerable and taxing effort and are infrequent or of short duration, or are attributable to the need to receive medical care. [X] (a) Attached documentation from encounter provides clinical findings supporting skilled need and homebound status (including what assistance patient requires to leave the home). The encounter with the patient was in whole, or in part, for the following medical condition, which is the primary reason for home health care: INFECTION (L) TOTAL KNEE REVISION Usp: Infected revision total knee, Patient will need iv daptomycin for 5 more weeks along with oral rifamfin 300 mg twice daily Physical Therapy:Revision total knee arthroplasty with ployethylene exchange and irrigation and debridement Speech Therapy: Homebound: 3. Certification and Authentication I certify that I composed the above information based on my clinical judgement relating to this patient's medical condition and, if applicable, clinical findings communicated to me by the NPP or inpatient physician who performed the Home Health Referral. Gage Pisano M.D. board certified orthopaedic surgeon All further orders will be obtained through (Community Based Physician - PCP)
--- NOTE | 2018-05-30 08:29 | HHF2F_ITS ---
1. Encounter Date and Reason I certify that ROBERT SEVERINO was seen by Gage Pisano on 05/30/18 and that I had a [id number] encounter with this patient that meets the physician face to face encounter requirements. 2. Clinical Findings Supporting Skilled Need and Homebound Status I certify that home health services are medically necessary, include either intermittent alf and/or physical/speech therapy, and that this patient is homebound in that absences from the home require considerable and taxing effort and are infrequent or of short duration, or are attributable to the need to receive medical care. [X] (a) Attached documentation from encounter provides clinical findings supporting skilled need and homebound status (including what assistance patient requires to leave the home). The encounter with the patient was in whole, or in part, for the following medical condition, which is the primary reason for home health care: INFECTION (L) TOTAL KNEE REVISION Usp: Infected revision total knee, Patient will need iv daptomycin for 5 more weeks along with oral rifamfin 300 mg twice daily Physical Therapy:Revision total knee arthroplasty with ployethylene exchange and irrigation and debridement Speech Therapy: Homebound: 3. Certification and Authentication I certify that I composed the above information based on my clinical judgement relating to this patient's medical condition and, if applicable, clinical findings communicated to me by the NPP or inpatient physician who performed the Home Health Referral. Gage Pisano M.D. board certified orthopaedic surgeon All further orders will be obtained through (Community Based Physician - PCP)
[2018-05-30 08:30] VITALS: O2SAT 96
[2018-05-30] MEDS: Budesonide/Formoterol 160/4.5 6 GM 60 PUFF INH IH (08:34)
[2018-05-30] MEDS: Enoxaparin 30 MG/0.3 ML SYR SC (08:41)
[2018-05-30] MEDS: Magnesium Oxide 400 MG TAB PO (08:41)
[2018-05-30] MEDS: Cyanocobalamin 500 MCG TAB 1000 MCG PO (08:41)
[2018-05-30] MEDS: Hydrochlorothiazide 25 MG TAB PO (08:41)
[2018-05-30] MEDS: Metoprolol 50 MG TAB 100 MG PO (08:41)
[2018-05-30] MEDS: oxyCODONE 5 MG TAB PO (08:42)
[2018-05-30] MEDS: Lisinopril 10 MG TAB PO (08:42)
[2018-05-30] MEDS: Lactobacillus Acidophilus CAP 1 CAP PO (08:42)
[2018-05-30] MEDS: Allopurinol 300 MG TAB PO (08:42)
[2018-05-30] MEDS: Multivitamin w/Minerals TAB 1 TAB PO (08:42)
[2018-05-30] MEDS: Meloxicam 15 MG TAB PO (08:43)
[2018-05-30] MEDS: metFORMIN 500 MG TAB 1000 MG PO (08:43)
[2018-05-30] MEDS: Gabapentin 100 MG CAP PO (08:43)
[2018-05-30] MEDS: Calcitriol 0.25 MCG CAP PO (08:43)
[2018-05-30] MEDS: Insulin Aspart 300 UNITS/3 ML PEN SC (08:43)
[2018-05-30] MEDS: Pantoprazole 40 MG TABCR PO (08:43)
--- NOTE | 2018-05-30 09:37 | PT.INTREAT ---
Date of service: 05/30/18 Time of Service: 09:37 PT Notes Inpatient Physical Therapy Treatment Note Date: 05/30/18 PRECAUTIONS:WBAT on L SUBJECTIVE: Marisel states that she is ready for discharge to home today. OBJECTIVE: PAIN: No c/o pain BED MOBILITY/TRANSFERS Supine-sit: I with HOB flat Sit-supine: I with HOB flat Sit-stand: I Stand-sit: I Bed-Chair: I GAIT Assistive Device: FWW Weight bearing: WBAT on L Assist: S Distance: 150' THEREX: Patient completed ankle pumps and SLR exercises in a supine position, as per flow sheet. ASSESSMENT: Patient tolerated session well without complaint. She demonstrates independence with transfers and bed mobility. PLAN: As per primary PT TREATMENT CODE/TIME: 25 minutes; TA/TP
[2018-05-30] MEDS: RIFAMPIN 300 MG CAP PO (09:53)
--- NOTE | 2018-05-30 10:48 | PT.INDS ---
Date of service: 05/30/18 Time of Service: 10:48 PT Notes Inpatient Physical Therapy Discharge Summary Date: 05/30/18 Dates of Service: 05/25/18-05/30/18 SUBJECTIVE: NT OBJECTIVE: 05/25/18-05/30/18 BED MOBILITY/TRANSFERS: Supine-sit independent Sit-supine independent Sit-stand independent Stand-sit independent Bed-Chair independent with FWW Chair-bed independent with FWW GAIT: supervision with FWW 150ft-300ft STAIRS: up/down 20 steps with railing independent BALANCE: Static sitting normal Dynamic sitting: normal Static standing: good Dynamic standing: fair ASSESSMENT: Pt was seen for 8 PT visits. Progressed from CGA standing transfers to independent, from CGA gait with FWW 30ft to supervision gait wtih FWW 300ft, able to ascend/descend 20 steps with railing independently. AROM left knee -8 to 106. Pt is being discharged to home setting today. GOALS Goals X1 week 1. Supine-Sit independent 2. Sit-Supine independent 3. Sit-Stand independent 4. Stand-Sit independent 5. Bed-Chair independent 6. Chair independent 7. Gait up to 300 feet with least restrictive assistive device and supervision 8: Stairs with supervision 9: Independent in Home program Pt met goals 1-9 DISCHARGE RECOMMENDATIONS: Home G Codes mobility walking moving around: projected goal [id number], discharge status GP [id number] Rodriguez PT
[2018-05-30 11:40] VITALS: BP 128/76; PULSE 77; RESP 18; TEMP 36.9; O2SAT 97
--- NOTE | 2018-05-30 14:46 | PDOC.CMDIS ---
- If Service Date Differs Date of service: 05/30/18 Time of Service: 14:46 LACE Index Scoring Tool - Questions: Length of Stay (in days): 7 - 13 Acuity (Admit via E.D.?): No Comorbidities: Diabetes w/o Complication, Chronic Pulmonary Disease Care Management Discharge Reason for Hospitalization: Infection Left Total Knee Revision. Discharge Plan: Helene will be discharged home today with home health services for nursing. She will have in home infusions which was set up through [facility] for her daily antibiotic. CM coordinated RCT at time of discharge including pharmacy pickle cutter for antibiotics. Home health notified of patients discharge. CM contacted [facility] and confrmed that delivery is scheduled. Patient/Family Education Needs: Discharge education,limitations and follow up plan of care. CM reviewed discharge plan and answered patients questions r/t home infusions and what to expect from home health. Services Needed at Discharge: Home Health Care Services, Infusion Therapy, Transportation
--- NOTE | 2018-05-30 15:03 | CMDISCH_ITS ---
- If Service Date Differs Date of service: 05/30/18 Time of Service: 14:46 LACE Index Scoring Tool - Questions: Length of Stay (in days): 7 - 13 Acuity (Admit via E.D.?): No Comorbidities: Diabetes w/o Complication, Chronic Pulmonary Disease Care Management Discharge Reason for Hospitalization: Infection Left Total Knee Revision. Discharge Plan: Helene will be discharged home today with home health services for nursing. She will have in home infusions which was set up through [facility] for her daily antibiotic. CM coordinated RCT at time of discharge including pharmacy orange picker for antibiotics. Home health notified of patients discharge. CM contacted [facility] and confrmed that delivery is scheduled. Patient/Family Education Needs: Discharge education,limitations and follow up plan of care. CM reviewed discharge plan and answered patients questions r/t home infusions and what to expect from home health. Services Needed at Discharge: Home Health Care Services, Infusion Therapy, Transportation
--- NOTE | 2018-05-30 18:51 | PDOC.CMPRO ---
- If Service Date Differs Date of service: 05/30/18 Time of Service: 18:51 Care Management Progress Note CM placed a follow up call to patient r/t medications questions after discharge. Helene would like to review times that mediations are due and last dose times prior to discharge. RN ROCIO reviewed discharged instructions and medication list over the phone. Helene states she was able to obtain all her medications from the pharmacy prior to returning home. She feels her questions have been addressed r/t medications.
--- NOTE | 2018-06-04 12:51 | PT.INIE ---
Date of service: 05/25/18 PT Notes Physical Therapy Initial Eval PATIENT NAME: ROBERT SEVERINO #: [id number] ADMITTING PROVIDER: MARIO BARAJAS DPT #: [id number] PRIMARY CARE PROVIDER: DATE OF ADMIT : 05/25/18 : 1950 Date of service: 05/25/18 Time of Service: 10:30 PT Notes Inpatient Physical Therapy Evaluation Date: 05/25/2018 Referring Doctor: Gage Pisano MD PT Orders: PT CONSULT: Progressive weightbearing as tolerated with left knee immobilizer status post poly-swap and I&D of infected total knee revision Precautions: Weightbearing as tolerated and standard patient Profile/Admitting Diagnosis: Patient is a 67-year-old female admitted to the hospital due to inflammatory changes to her left knee and feelings of fatigue and weakness. She was found to have severe elevation of white blood cell and was noted to have infection in the left knee after aspiration. On 05/24/2018 Gage Pisano MD performed a poly-swap and I&D of infected total knee revision. Patient has had the revision for 2 years now. PMHX: Hypoparthyroidism, COPD, morbid obesity, polycythemia, hypertension, RAD, TRINA, ischemic heart disease, diabetes, hypothyroidism, degenerative arthritis of left knee. Surgical hx: Biopsy; bone marrow, , cardiac cath,ligation of fallopian tube, parathroidectomy, total knee joint replacement, thyroidectomy, tonsillectomy, eye surgery, endometrial biopsy. Social History/Home Situation: [facility] she has 2 flights to enter her home Equipment Owned/DME: Front wheel walker which he uses at baseline Subjective: Patient states that other than feeling slightly fatigued and tired she is doing okay Objective: Observation: Patient currently with IV port and access through the left upper extremity, Cadena catheter in place and knee immobilizer in place on the left lower extremity Mental Status: Alert and oriented x3 to person place and time Pain: 2 out of 10 currently to the left knee ROM: Right Upper Extremity: WNL Left Upper Extremity: WNL Right Lower Extremity: WFL Left Lower Extremity: Patient within functional limits through the left hip, left knee currently immobilized, left ankle within normal limits Strength: Right Upper Extremity: Globally 5 out of 5 Left Upper Extremity: Globally 5 out of 5 Right Lower Extremity: Globally 5 out of 5 Left Lower Extremity: 4 out of 5 hip flexion, quads and hamstring 3/5, dorsiflexion and plantar flexion 5 out of 5 Neuro screen: Patient intact to light touch and sensation throughout upper and lower extremity dermatomes. Motor control appears intact to associated myotomes and patient demonstrates appropriate proprioception and kinesthetic awareness Bed Mobility/Transfers: Patient is sitting up in chair there was no supine evaluation completed Sit-stand: Contact-guard assist with front wheel walker Stand-sit: Contact-guard assist with front wheel walker Gait: With the use of front wheel walker and contact-guard assist patient able to walk up to 30 feet describing only minor fatigue and very minimal shortness of breath Balance: Static Sitting: Good Dynamic Sitting: Good Static Standing: Good Dynamic Standing: fair Special Tests: Mobility Limitations Standardized Measure [facility] AM-PAC 6 clicks Basic Mobility Inpatient Short Form: Raw Score: 18 standardized Score: 43.63 CMS Score 46.58% CMS Modifier: CK Informed Consent/Education: Patient instructed in purpose of PT consult and plan of care. ASSESSMENT: Patient is a 67-year-old female Admitted with diagnosis of being status post 1 day poly-swap and I&D of left total knee revision Patient demonstrates signs and symptoms consistent with this diagnosis and ambulation intolerance. Patient presents with the following impairment level findings: Limited knee range of motion and currently in a knee immobilizer, minor assist needed for transfers, limited ambulation endurance, and strict use of assistive device. Pt will benefit from skilled therapy intervention in order to remediate her functional limtations and restore patient to a more appropriate and stable functional level for Impairments are contributing to the following functional limitations: AMPAC score CMS Score: Patient is assessed as a moderate complexity initial evaluation 17115 based on the following: History: see above Examination: see above Presentation: Evolving Decision Making: Moderate based on AMPAC of 46.58 Goals: Goals X1 week 1. Supine-Sit independent 2. Sit-Supine independent 3. Sit-Stand independent 4. Stand-Sit independent 5. Bed-Chair independent 6. Chair independent 7. Gait up to 300 feet with least restrictive assistive device and supervision 8: Stairs with supervision 9: Independent in Home program Plan of Care/Treatment Plan: 1-2x/day, 7 days/week x 1 week. Plan of care has been reviewed with the EMPLOYEE BENEFITS COORDINATOR providing the service under Physical Therapy direction. Initiate Physical Therapy intervention for strengthening, bed mobility, transfers, gait, stairs, balance training, use of assistive device. DISCHARGE RECOMMENDATIONS: To home once medically stable with the assist of PT and OT services TREATMENT CODE/TIME: Moderate complexity initial evaluation 98295 10:30 25 minutes G Codes mobility walking moving around [id number] as justified by her score on the AMPAC of 46.58. Goal return to premorbid level of function considering comorbidities [id number] Barajas DPT Dictated by: LATRICE BARAJAS DPTDictated: 05/25/18 Time: 1242 <Electronically signed by LATRICE BARAJAS DPT>Date: 05/25/18 Time: 1254 Transcribed Date: 05/25/18 Transcribed Time: 1242By: JANKI This is privileged, confidential information, intended only for the provider named. Any use or distribution by any person other than this provider is strictly prohibited. If you receive this report in error, please notify us immediately at [phone] and return the original report to us at the address above. Thank you.
== END 2018-05-30 13:30 | disposition home health service (06) | DRG 467 ==
LOC: PDS 07:37 → MS 12:29
PROVIDERS: Admitting Provider Orthopaedic Surgery; PCP Family Medicine; Visit Provider Orthopaedic Surgery
PROC: 0SPU0JZ Removal of Synthetic Substitute from Left Knee Joint, Femoral Surface, Open Approach (ICD-10-PCS; principal; 2018-05-24 08:15)
DX: T84.54XA Infection and inflammatory reaction due to internal left knee prosthesis, initial encounter (principal); M00.262 Other streptococcal arthritis, left knee; Z68.41 Body mass index [BMI] 40.0-44.9, adult; M65.162 Other infective (teno)synovitis, left knee; B95.4 Other streptococcus as the cause of diseases classified elsewhere; Z16.23 Resistance to quinolones and fluoroquinolones; Z16.11 Resistance to penicillins; I10 Essential (primary) hypertension; G47.33 Obstructive sleep apnea (adult) (pediatric); E11.9 Type 2 diabetes mellitus without complications; Z79.84 Long term (current) use of oral hypoglycemic drugs; E03.9 Hypothyroidism, unspecified; J44.9 Chronic obstructive pulmonary disease, unspecified; E83.51 Hypocalcemia; F17.210 Nicotine dependence, cigarettes, uncomplicated; E78.5 Hyperlipidemia, unspecified; E66.01 Morbid (severe) obesity due to excess calories; Z96.652 Presence of left artificial knee joint
CPT/HCPCS: 27486; 36410; 36415; 36569; 76942; 80048; 85027; 87040; 88305; 94640; 97110; 97162; 97530; 99232; 99233; 99254; NC; 80202; 87086; 99222; J0131; J0878; J1100; J1650; J1885; J2250; J2405; J7620; L1830

== ENCOUNTER → 2018-05-24 12:41 | Outpatient (BNVA) | payer MEDICARE, MEDICAID, SELFPAY | PROVIDERS: PCP Family Medicine; Referring Provider Family Medicine; Visit Provider Orthopaedic Surgery | DX: R69 Illness, unspecified (principal) ==

== ENCOUNTER 2018-06-03 13:40 | Outpatient (REF) | payer MEDICARE, MEDICAID, SELFPAY ==
[2018-06-03 14:57] LABS: C-Reactive Protein 1.38 mg/dL (0.0-0.3); Creatine Kinase 544 U/L (26-192)
[2018-06-03 15:35] LABS: ESR 41 MM/HR (0-30)
== END 2018-06-03 14:00 ==
LOC: LBN 13:40
PROVIDERS: Orthopaedic Surgery; PCP Family Medicine; Visit Provider Family Medicine
DX: T84.59XA Infection and inflammatory reaction due to other internal joint prosthesis, initial encounter (principal); Z96.659 Presence of unspecified artificial knee joint
CPT/HCPCS: 82550; 85652; 86140

== ENCOUNTER → 2018-06-07 08:46 | Outpatient (BNVA) | payer MEDICARE, MEDICAID, SELFPAY | PROVIDERS: PCP Family Medicine; Referring Provider Family Medicine; Visit Provider Orthopaedic Surgery | DX: Z47.1 Aftercare following joint replacement surgery (principal); Z96.652 Presence of left artificial knee joint; T84.59XA Infection and inflammatory reaction due to other internal joint prosthesis, initial encounter ==

== ENCOUNTER 2018-06-10 10:29 | Outpatient (REF) | payer MEDICARE, MEDICAID, SELFPAY ==
[2018-06-10 11:18] LABS: C-Reactive Protein 3.69 mg/dL (0.0-0.3)
[2018-06-10 11:22] LABS: Creatine Kinase 4472 U/L (26-192)
== END 2018-06-10 10:49 ==
LOC: LBN 10:29
PROVIDERS: PCP Family Medicine; Visit Provider Orthopaedic Surgery
DX: T84.59XD Infection and inflammatory reaction due to other internal joint prosthesis, subsequent encounter (principal)
CPT/HCPCS: 82550; 86140

== ENCOUNTER 2018-06-17 11:58 | Outpatient (REF) | payer MEDICARE, MEDICAID, SELFPAY ==
[2018-06-17 14:44] LABS: C-Reactive Protein 7.99 mg/dL (0.0-0.3); Creatine Kinase 309 U/L (26-192)
[2018-06-17 15:42] LABS: ESR 70 MM/HR (0-30)
== END 2018-06-17 12:18 ==
LOC: LBN 11:58
PROVIDERS: PCP Family Medicine; Referring Provider Orthopaedic Surgery; Visit Provider Family Medicine
DX: T84.59XD Infection and inflammatory reaction due to other internal joint prosthesis, subsequent encounter (principal)
CPT/HCPCS: 82550; 85652; 86140

== ENCOUNTER 2018-06-24 13:19 | Outpatient (REF) | payer MEDICARE, MEDICAID, SELFPAY ==
[2018-06-24 13:53] LABS: Creatine Kinase 295 U/L (26-192)
== END 2018-06-24 13:39 ==
LOC: LBN 13:19
PROVIDERS: Orthopaedic Surgery; PCP Family Medicine; Visit Provider Family Medicine
DX: T84.59XD Infection and inflammatory reaction due to other internal joint prosthesis, subsequent encounter (principal)
CPT/HCPCS: 82550